=== PATIENT | male | born 1975 ===

== ENCOUNTER 2020-06-14 10:15 | Outpatient (REF) | payer MEDICAID, SELFPAY ==
[2020-06-14 11:14] LABS: MANUAL DIFF FLAG NO
[2020-06-14 11:31] LABS: Basophils Absolute Auto 0.1 X10*3/uL (0.0-0.2); Basophils Percent Auto 1.1 % (0-2); Eosinophils Absolute Auto 0.2 X10*3/uL (0.0-0.4); Eosinophils Percent Auto 3.8 % (0-4); Hematocrit 45.2 % (42-52); Hemoglobin 14.9 g/dl (14.0-18.0); Imm Gran Abs Auto 0.01 X10*3/uL (0.00-0.03); Imm Gran Pct Auto 0.2 % (0.0-0.4); Lymphocytes Absolute Auto 1.8 X10*3/uL (1.2-4.9); Lymphocytes Percent Auto 38.2 % (20-40); Mean Corpuscular Hemoglobin 31.6 pg (27.0-33.0); Mean Platelet Volume 10.5 fL (9.4-12.4); Monocytes Absolute Auto 0.7 X10*3/uL (0.1-1.2); Monocytes Percent Auto 14.1 % (2-11); Neutrophils Percent Auto 42.6 % (45-73); Platelet Count 226 X10*3/uL (160-400); Red Blood Count 4.71 X10*6/uL (4.60-5.80); Red Cell Distribution Width 12.7 % (11.0-16.0); White Blood Count 4.7 X10*3/uL (4.8-10.8)
[2020-06-14 11:41] LABS: Alanine Aminotransferase 64 U/L (0-40); Albumin Level 4.5 g/dL (3.5-5.0); Alkaline Phosphatase 64 U/L (39-117); Anion Gap 13 (12-20); Aspartate Amino Transferase 56 U/L (5-37); Bilirubin Direct 0.5 mg/dL (0.0-0.5); Bilirubin Total 1.4 mg/dL (0.0-1.0); Blood Urea Nitrogen 11 mg/dL (9-16); Calcium 9.1 mg/dL (8.4-10.2); Carbon Dioxide 26 mmol/L (22-29); Chloride 104 mmol/L (96-108); Cholesterol 178 mg/dL; Estimated Glomerular Filt Rate > 60; Glucose Random 101 mg/dL (60-115); HDL Cholesterol 78 mg/dL; LDL Cholesterol Calculated 87 mg/dl; Potassium 4.8 mmol/l (3.3-5.1); Sodium 138 mmol/L (135-145); Triglycerides 67 mg/dL
[2020-06-14 12:08] LABS: Free T4 (Free Thyroxine) 1.19 ng/dL (0.71-1.85); Thyroid Stimulating Hormone 1.85 mIU/mL (0.32-4.0); Vitamin D 25-OH Total 32.2 ng/mL (>30)
== END 2020-06-14 10:16 | disposition home or self-care (01) ==
LOC: HO.LAB 10:15
DX: E78.5 Hyperlipidemia, unspecified (principal); R53.83 Other fatigue
CPT/HCPCS: 36415; 80053; 80061; 80076; 82248; 82306; 84439; 84443; 85025

== ENCOUNTER 2020-07-18 16:30 | Outpatient (REF) | payer MEDICAID, SELFPAY ==
--- NOTE | 2020-07-18 | XR_ITS ---
EXAMINATION: XR HAND, RIGHT CLINICAL INFORMATION: Pain and swelling. COMPARISON: None TECHNIQUE: PA, lateral, and oblique views of the right hand. FINDINGS: The bones and soft tissues are normal. No fracture. Alignment is anatomic. Joint spaces are maintained. No erosions or soft tissue calcifications. XR/XR hand RT min 3V IMPRESSION: Unremarkable right hand exam.
== END 2020-07-18 16:31 | disposition home or self-care (01) ==
LOC: HO.XRAY 16:30
DX: M79.641 Pain in right hand (principal); M79.89 Other specified soft tissue disorders
CPT/HCPCS: 73130

== ENCOUNTER 2021-03-23 09:06 | Outpatient (REF) | payer OTHER, SELFPAY ==
[2021-03-23 11:00] LABS: Alanine Aminotransferase 24 U/L (0-40); Albumin Level 4.3 g/dL (3.5-5.0); Alkaline Phosphatase 56 U/L (39-117); Anion Gap 12 (12-20); Aspartate Amino Transferase 18 U/L (5-37); Bilirubin Total 0.9 mg/dL (0.0-1.0); Blood Urea Nitrogen 12 mg/dL (9-16); Calcium 9.4 mg/dL (8.4-10.2); Carbon Dioxide 27 mmol/L (22-29); Chloride 106 mmol/L (96-108); Cholesterol 179 mg/dL; Estimated Glomerular Filt Rate > 60; Glucose Fasting 96 mg/dL (60-99); HDL Cholesterol 74 mg/dL; LDL Cholesterol Calculated 94 mg/dl; Potassium 4.7 mmol/L (3.3-5.1); Sodium 140 mmol/L (135-145); Total Protein 6.8 g/dL (6.5-8.0); Triglycerides 58 mg/dL
[2021-03-23 11:09] LABS: TSH reflex Free T4 1.73 uIU/mL (0.32-4.0)
[2021-03-23 11:40] LABS: Folate 16.3 ng/mL (> or = 4.0); Vitamin B12 536 pg/mL (200-900)
== END 2021-03-23 09:07 | disposition home or self-care (01) ==
LOC: HO.LAB 09:06
PROVIDERS: PCP Internal Medicine; Visit Provider Internal Medicine
DX: E78.00 Pure hypercholesterolemia, unspecified (principal); R20.2 Paresthesia of skin; E80.6 Other disorders of bilirubin metabolism; R79.89 Other specified abnormal findings of blood chemistry
CPT/HCPCS: 36415; 80053; 80061; 82607; 82746; 84443

== ENCOUNTER 2021-07-24 09:37 | Outpatient (REF) | payer OTHER, SELFPAY ==
[2021-07-24 09:50] LABS: MANUAL DIFF FLAG NO
[2021-07-24 10:32] LABS: Basophils Percent Auto 0.6 % (0-2); Eosinophils Absolute Auto 0.1 X10*3/uL (0.0-0.4); Eosinophils Percent Auto 2.7 % (0-4); Hemoglobin 14.4 g/dl (14.0-18.0); Imm Gran Abs Auto 0.01 X10*3/uL (0.00-0.03); Imm Gran Pct Auto 0.2 % (0.0-0.4); Lymphocytes Percent Auto 38.7 % (20-40); Mean Corpuscular HGB Conc 33.5 g/dl (31.0-36.0); Mean Corpuscular Hemoglobin 31.6 pg (27.0-33.0); Mean Corpuscular Volume 94.5 fL (80.0-98.0); Mean Platelet Volume 10.3 fL (9.4-12.4); Monocytes Absolute Auto 0.5 X10*3/uL (0.1-1.2); Monocytes Percent Auto 10.2 % (2-11); Neutrophils Absolute Auto 2.5 x10*3/uL (2.0-8.3); Neutrophils Percent Auto 47.6 % (45-73); Platelet Count 232 X10*3/uL (160-400); Red Blood Count 4.55 X10*6/uL (4.60-5.80); Red Cell Distribution Width 12.9 % (11.0-16.0); White Blood Count 5.2 X10*3/uL (4.8-10.8)
[2021-07-24 11:07] LABS: Alanine Aminotransferase 29 U/L (0-40); Albumin Level 4.3 g/dL (3.5-5.0); Alkaline Phosphatase 64 U/L (39-117); Anion Gap 14 (12-20); Aspartate Amino Transferase 22 U/L (5-37); Bilirubin Total 1.3 mg/dL (0.0-1.0); Blood Urea Nitrogen 11 mg/dL (9-16); Calcium 9.3 mg/dL (8.4-10.2); Carbon Dioxide 23 mmol/L (22-29); Chloride 107 mmol/L (96-108); Cholesterol 178 mg/dL; Estimated Glomerular Filt Rate > 60; Glucose Fasting 106 mg/dL (60-99); HDL Cholesterol 74 mg/dL; LDL Cholesterol Calculated 87 mg/dl; Potassium 4.4 mmol/L (3.3-5.1); Sodium 140 mmol/L (135-145); Total Protein 6.8 g/dL (6.5-8.0); Triglycerides 89 mg/dL
== END 2021-07-24 09:38 | disposition home or self-care (01) ==
LOC: HO.LAB 09:37
PROVIDERS: PCP Internal Medicine; Visit Provider Internal Medicine
DX: E78.00 Pure hypercholesterolemia, unspecified (principal); L40.9 Psoriasis, unspecified
CPT/HCPCS: 36415; 80053; 80061; 85025

== ENCOUNTER 2022-01-02 09:46 | Outpatient (REF) | payer OTHER, SELFPAY ==
[2022-01-02 09:57] LABS: MANUAL DIFF FLAG NO
[2022-01-02 10:19] LABS: Basophils Percent Auto 0.7 % (0-2); Eosinophils Absolute Auto 0.1 X10*3/uL (0.0-0.4); Eosinophils Percent Auto 2.7 % (0-4); Hematocrit 42.3 % (42.0-52.0); Hemoglobin 14.3 g/dl (14.0-18.0); Imm Gran Abs Auto 0.01 X10*3/uL (0.00-0.03); Imm Gran Pct Auto 0.2 % (0.0-0.4); Lymphocytes Absolute Auto 1.6 X10*3/uL (1.2-4.9); Lymphocytes Percent Auto 38.9 % (20-40); Mean Corpuscular HGB Conc 33.8 g/dl (31.0-36.0); Mean Corpuscular Hemoglobin 31.4 pg (27.0-33.0); Mean Platelet Volume 10.5 fL (9.4-12.4); Monocytes Absolute Auto 0.6 X10*3/uL (0.1-1.2); Neutrophils Absolute Auto 1.7 x10*3/uL (2.0-8.3); Neutrophils Percent Auto 43.5 % (45-73); Platelet Count 204 X10*3/uL (160-400); Red Blood Count 4.55 X10*6/uL (4.60-5.80); Red Cell Distribution Width 13.9 % (11.0-16.0)
[2022-01-02 10:31] LABS: Estimated Average Glucose 103 mg/dL; Hemoglobin A1c % 5.2 %
[2022-01-02 10:57] LABS: Alanine Aminotransferase 26 U/L (0-40); Albumin Level 4.3 g/dL (3.5-5.0); Alkaline Phosphatase 62 U/L (39-117); Anion Gap 10 (12-20); Aspartate Amino Transferase 21 U/L (5-37); Bilirubin Total 1.3 mg/dL (0.0-1.0); Blood Urea Nitrogen 6 mg/dL (9-16); Calcium 9.6 mg/dL (8.4-10.2); Carbon Dioxide 27 mmol/L (22-29); Chloride 108 mmol/L (96-108); Cholesterol 179 mg/dL; Estimated Glomerular Filt Rate > 60; Glucose Fasting 113 mg/dL (60-99); HDL Cholesterol 82 mg/dL; LDL Cholesterol Calculated 86 mg/dl; Potassium 4.6 mmol/L (3.3-5.1); Sodium 140 mmol/L (135-145); Triglycerides 57 mg/dL
[2022-01-02 11:17] LABS: TSH reflex Free T4 1.23 uIU/mL (0.32-4.0); Vitamin D 25-OH Total 27.5 ng/mL (>30)
[2022-01-02 14:46] LABS: Folate 16.5 ng/mL (> or = 4.0); Vitamin B12 423 pg/mL (200-900)
== END 2022-01-02 09:47 | disposition home or self-care (01) ==
LOC: HO.LAB 09:46
PROVIDERS: PCP Internal Medicine; Visit Provider Internal Medicine
DX: E78.00 Pure hypercholesterolemia, unspecified (principal); E55.9 Vitamin D deficiency, unspecified; E53.8 Deficiency of other specified B group vitamins; G57.30 Lesion of lateral popliteal nerve, unspecified lower limb; I10 Essential (primary) hypertension; R73.01 Impaired fasting glucose
CPT/HCPCS: 36415; 80053; 80061; 82306; 82607; 82746; 83036; 84443; 85025

== ENCOUNTER 2022-01-19 07:57 | Outpatient (REF) | payer OTHER, SELFPAY ==
--- NOTE | ~2022-01-19 | XR_ITS ---
EXAMINATION: XR CHEST CLINICAL INFORMATION: Cough. COMPARISON: None TECHNIQUE: 2 views of the chest were obtained. FINDINGS: No significant abnormality is noted involving the heart, lungs, mediastinum, bony thorax or soft tissues. XR/XR chest 2V IMPRESSION: Unremarkable chest examination.
== END 2022-01-19 07:58 | disposition home or self-care (01) ==
LOC: HO.XRAY 07:57
PROVIDERS: Visit Provider Internal Medicine
DX: R05.9 Cough, unspecified (principal)
CPT/HCPCS: 71046

== ENCOUNTER 2022-06-05 09:28 | Outpatient (REF) | payer OTHER, SELFPAY ==
[2022-06-05 09:52] LABS: MANUAL DIFF FLAG NO
[2022-06-05 10:25] LABS: Basophils Absolute Auto 0.1 X10*3/uL (0.0-0.2); Basophils Percent Auto 0.7 % (0-2); Eosinophils Absolute Auto 0.2 X10*3/uL (0.0-0.4); Eosinophils Percent Auto 2.8 % (0-4); Hematocrit 42.3 % (42.0-52.0); Hemoglobin 14.3 g/dl (14.0-18.0); Imm Gran Abs Auto 0.03 X10*3/uL (0.00-0.03); Imm Gran Pct Auto 0.4 % (0.0-0.4); Lymphocytes Absolute Auto 2.6 X10*3/uL (1.2-4.9); Lymphocytes Percent Auto 37.8 % (20-40); Mean Corpuscular HGB Conc 33.8 g/dl (31.0-36.0); Mean Corpuscular Hemoglobin 31.8 pg (27.0-33.0); Mean Corpuscular Volume 94.2 fL (80.0-98.0); Mean Platelet Volume 10.7 fL (9.4-12.4); Monocytes Absolute Auto 0.8 X10*3/uL (0.1-1.2); Monocytes Percent Auto 11.9 % (2-11); Neutrophils Absolute Auto 3.2 x10*3/uL (2.0-8.3); Neutrophils Percent Auto 46.4 % (45-73); Platelet Count 231 X10*3/uL (160-400); Red Blood Count 4.49 X10*6/uL (4.60-5.80); Red Cell Distribution Width 12.7 % (11.0-16.0); White Blood Count 6.8 X10*3/uL (4.8-10.8)
[2022-06-05 10:38] LABS: Appearance Urine Clear; Color Urine Yellow; Glucose Urine UA Negative (Negative); Leukocyte Esterase Urine Small (1+) (Negative); Nitrite Urine Negative (Negative); Specific Gravity - Urine 1.015 (1.005-1.025); UMIC TRIGGER UACC YES; Urine Blood Negative (Negative); Urine Ketones Negative (Negative); Urine Protein Negative (Neg-Trace)
[2022-06-05 10:51] LABS: Bacteria Urine None Seen (None Seen); Hyaline Casts Urine 0-2 /LPF (0-2); RBC Urine 0-2 /HPF (0-2); Squamous Epithelial Cell Urine 0-2 /HPF (0-2); UACC Culture Trigger YES; WBC Urine 0-5 /HPF (0-5)
[2022-06-05 10:52] LABS: Alanine Aminotransferase 30 U/L (0-40); Albumin Level 4.3 g/dL (3.5-5.0); Alkaline Phosphatase 68 U/L (39-117); Anion Gap 14 (12-20); Aspartate Amino Transferase 23 U/L (5-37); Bilirubin Total 1.2 mg/dL (0.0-1.0); Blood Urea Nitrogen 12 mg/dL (9-16); Calcium 9.1 mg/dL (8.4-10.2); Carbon Dioxide 25 mmol/L (22-29); Chloride 105 mmol/L (96-108); Cholesterol 171 mg/dL; Estimated Average Glucose 103 mg/dL; Estimated Glomerular Filt Rate > 60; Glucose Fasting 102 mg/dL (60-99); HDL Cholesterol 63 mg/dL; Hemoglobin A1c % 5.2 %; LDL Cholesterol Calculated 90 mg/dl; Potassium 4.1 mmol/L (3.3-5.1); Sodium 140 mmol/L (135-145); Total Protein 6.8 g/dL (6.5-8.0); Triglycerides 94 mg/dL
[2022-06-05 11:15] LABS: TSH reflex Free T4 3.16 uIU/mL (0.32-4.0); Vitamin D 25-OH Total 32.7 ng/mL (>30)
== END 2022-06-05 09:29 | disposition home or self-care (01) ==
LOC: HO.LAB 09:28
PROVIDERS: PCP Internal Medicine; Visit Provider Internal Medicine
DX: E78.00 Pure hypercholesterolemia, unspecified (principal); E55.9 Vitamin D deficiency, unspecified; R73.01 Impaired fasting glucose; I10 Essential (primary) hypertension
CPT/HCPCS: 36415; 80053; 80061; 81001; 82306; 83036; 84443; 85025; 87086

== ENCOUNTER 2022-10-22 08:00 | Outpatient (REF) | payer OTHER, SELFPAY ==
[2022-10-22 08:16] LABS: MANUAL DIFF FLAG NO
[2022-10-22 08:44] LABS: Basophils Percent Auto 0.7 % (0-2); Eosinophils Absolute Auto 0.1 X10*3/uL (0.0-0.4); Eosinophils Percent Auto 2.1 % (0-4); Hemoglobin 14.9 g/dl (14.0-18.0); Imm Gran Abs Auto 0.02 X10*3/uL (0.00-0.03); Imm Gran Pct Auto 0.3 % (0.0-0.4); Lymphocytes Absolute Auto 2.6 X10*3/uL (1.2-4.9); Lymphocytes Percent Auto 42.3 % (20-40); Mean Corpuscular HGB Conc 33.9 g/dl (31.0-36.0); Mean Corpuscular Volume 94.6 fL (80.0-98.0); Mean Platelet Volume 11.1 fL (9.4-12.4); Monocytes Absolute Auto 0.8 X10*3/uL (0.1-1.2); Monocytes Percent Auto 13.1 % (2-11); Neutrophils Absolute Auto 2.5 x10*3/uL (2.0-8.3); Neutrophils Percent Auto 41.5 % (45-73); Platelet Count 222 X10*3/uL (160-400); Red Blood Count 4.65 X10*6/uL (4.60-5.80); Red Cell Distribution Width 13.5 % (11.0-16.0); White Blood Count 6.1 X10*3/uL (4.8-10.8)
[2022-10-22 09:06] LABS: Appearance Urine Clear; Color Urine Yellow; Glucose Urine UA Negative (Negative); Leukocyte Esterase Urine Negative (Negative); Nitrite Urine Negative (Negative); PH 7.5 (5.0-9.0); Urine Blood Negative (Negative); Urine Ketones Negative (Negative); Urine Protein Negative (Neg-Trace)
[2022-10-22 09:21] LABS: Alanine Aminotransferase 29 U/L (0-40); Albumin Level 4.3 g/dL (3.5-5.0); Alkaline Phosphatase 60 U/L (39-117); Anion Gap 13 (12-20); Aspartate Amino Transferase 24 U/L (5-37); Bilirubin Total 1.3 mg/dL (0.0-1.0); Blood Urea Nitrogen 13 mg/dL (9-16); Calcium 9.3 mg/dL (8.4-10.2); Carbon Dioxide 24 mmol/L (22-29); Chloride 106 mmol/L (96-108); Cholesterol 199 mg/dL; Estimated Glomerular Filt Rate > 60; Glucose Fasting 104 mg/dL (60-99); HDL Cholesterol 72 mg/dL; LDL Cholesterol Calculated 110 mg/dl; Potassium 4.4 mmol/L (3.3-5.1); Sodium 139 mmol/L (135-145); Total Protein 6.8 g/dL (6.5-8.0); Triglycerides 88 mg/dL
[2022-10-22 09:31] LABS: TSH reflex Free T4 2.68 uIU/mL (0.32-4.0)
== END 2022-10-22 08:01 | disposition home or self-care (01) ==
LOC: HO.LAB 08:00
PROVIDERS: PCP Internal Medicine; Visit Provider Internal Medicine
DX: I10 Essential (primary) hypertension (principal); E55.9 Vitamin D deficiency, unspecified; R30.0 Dysuria; E78.00 Pure hypercholesterolemia, unspecified
CPT/HCPCS: 36415; 80053; 80061; 81003; 82306; 84443; 85025

== ENCOUNTER 2022-12-02 13:11 | Emergency (ER) | payer OTHER, SELFPAY ==
--- NOTE | ~2022-12-02 | CT_ITS ---
EXAMINATION: CT ABDOMEN AND PELVIS WITHOUT CONTRAST CLINICAL INFORMATION: Left flank pain. Rule out stone. COMPARISON: None available. TECHNIQUE: Multidetector volumetric imaging was performed from the superior aspect of the liver through the pubic symphysis. Sagittal and coronal reformatted images were obtained on the technologist's workstation. This CT examination was performed using dose optimization techniques as appropriate, variously including the following: *Automated exposure control *Adjustment of mA and/or kV according to patient size (this includes techniques or standardized protocols for targeted exams where dose is matched to indication/reason for exam; i.e. extremities or head) *Use of iterative reconstruction technique DLP: 452 mGy-cm FINDINGS: LUNG BASES: The visualized lung bases are unremarkable. LIVER, GALLBLADDER, AND BILIARY TREE: The liver is normal in size, shape, and attenuation. No focal hepatic lesion or biliary ductal dilatation is present. The gallbladder is unremarkable with no evidence of radiopaque gallstones, gallbladder wall thickening, or obvious pericholecystic inflammatory changes. PANCREAS: Unremarkable. SPLEEN: Unremarkable. ADRENAL GLANDS: Unremarkable. KIDNEYS AND URETERS: The kidneys are normal in size, shape, and attenuation. No hydronephrosis, hydroureter, or calculi seen. No perinephric stranding. BLADDER: Unremarkable. GASTROINTESTINAL TRACT: The small and large bowel are unremarkable. The appendix is unremarkable. ABDOMINAL WALL: Small umbilical hernia containing fat.. LYMPH NODES: Normal. VASCULAR: Unremarkable. PELVIC VISCERA: Unremarkable. OSSEOUS STRUCTURES: Degenerative changes of the lower lumbar spine. CT/CT abdomen pelvis wo IV con IMPRESSION: No stone or hydronephrosis seen. Fleischner guidelines were followed.
--- NOTE | ~2022-12-02 | XR_ITS ---
EXAMINATION: XR CHEST CLINICAL INFORMATION: Left-sided chest pain COMPARISON: Previous chest x-ray January 2022 TECHNIQUE: 2 views of the chest were obtained. FINDINGS: No significant abnormality is noted involving the heart, lungs, mediastinum, bony thorax or soft tissues. XR/XR chest 2V IMPRESSION: Unremarkable examination.
--- NOTE | 2022-12-02 13:15 | ECG_ITS ---
Test Reason : L FLANK PAIN Blood Pressure : / mmHG Vent. Rate : 093 BPM Atrial Rate : 093 BPM P-R Int : 114 ms QRS Dur : 072 ms QT Int : 342 ms P-R-T Axes : 030 058 003 degrees QTc Int : 425 ms Normal sinus rhythm with sinus arrhythmia Normal ECG When compared with ECG of 14-DEC-2014 16:05, No significant change was found Referred By: Petra Zhao Electronically Signed By:DEMI BARILLAS
[2022-12-02 13:46] VITALS: BP 160/97; PULSE 90; RESP 18; TEMP 37.1; O2SAT 99; BMI 26.6
--- NOTE | 2022-12-02 13:46 | ED.GENADULT ---
HPI - General Adult General Chief complaint: Abdominal Pain Stated complaint: L side pain rad to back Time Seen by Provider: 12/02/22 19:36 Source: patient Mode of arrival: ambulatory Limitations: no limitations History of Present Illness HPI narrative: 47 yo male presents to the ER for evaluation of left middle back pain that started about a week ago but has been getting worse. He states he works in [employer] and is often crawling into small spaces. He reports the pain started mild in his middle left back. It got worse this week and acutely worse today. It is worse with movement and deep breaths. No urinary symptoms. No chest pain. MD complaint: left flank pain Onset (ago): week(s) (1) Location: back and left Radiation: non-radiation Severity: moderate Quality: stabbing and aching Pain Consistency: constant Relieving factors: rest Exacerbating factors: movement Associated symptoms: denies other symptoms Treatments prior to arrival: none Related Data Home Medications Medication Instructions Recorded Confirmed apremilast 30 mg tablet 30 mg PO BID 12/01/20 11/13/22 Previous Rx's Medication Instructions Recorded clobetasol 0.05 % scalp solution 1 appl topical DAILY PRN scalp 01/18/22 psoriasis #50 mL atorvastatin 20 mg tablet 20 mg PO DAILY #90 tabs 09/24/22 cholecalciferol (vitamin D3) 50 50 mcg PO DAILY 90 days #90 caps 11/13/22 mcg (2,000 unit) capsule cyclobenzaprine 10 mg tablet 10 mg PO Q8H PRN muscle spasm #14 12/02/22 tabs ibuprofen 800 mg tablet 800 mg PO Q8H PRN fever or pain 12/02/22 #10 tabs lidocaine 5 % topical patch 1 patch topical DAILY #15 ea 12/02/22 Allergies Allergy/AdvReac Type Severity Reaction Status Date / Time trazodone AdvReac Intermediate racing Uncoded 11/13/22 09:35 thoughts ; made insomnia worse Review of Systems Review of Systems: Yes all other systems are reviewed and are negative [facility] Past Medical History Medical History (Updated 12/02/22 @ 19:59 by VIJAY Juares) Elevated LFTs Hyperbilirubinemia Insomnia Overweight (BMI 25.0-29.9) Paresthesia of both feet Peroneal neuropathy Peyronie's disease Psoriasis Pure hypercholesterolemia Vitamin D deficiency Surgical History History of hand surgery Family History Family History Mother Hypertension Father Heart disease Hyperlipidemia Social History Social History Housing: House Alcohol intake: current Alcohol intake frequency: a few times a week Patient Tobacco Use Status: Former Tobacco user e-Cigarette/Vaping Use: Never Used Second Hand Smoke Exposure: Yes Advance Directives: No Advance Directives Information Provided: Yes service: No Current occupational status: employed 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 Oriented X3. No acute distress. Head: normocephalic, atraumatic. Eyes: Pupils equal, round and reactive to light. ENT: Pharynx normal. No tonsillar swelling or exudate. Neck: Normal inspection. Neck supple. CVS: Normal heart rate and rhythm. Pulses normal. Respiratory: No respiratory distress. Breath sounds normal. Abdomen: Soft and nontender. +BS x4 Back: normal inspection. +CVA tenderness on the left. no lumbar tenderness. no midline tenderness Skin: Skin warm and dry. Normal skin color. Normal skin turgor. No rashes. Extremities: No lower extremity edema. No joint swelling. Neuro/psych: Oriented X 3. No motor deficit. No sensory deficit. CN II-XII intact. Normal speech and cognition. Medical Decision Making Medical Decision Making [facility] Narrative: 47 yo male presents to the ER for evaluation of left flank pain that started 1 week ago and has been getting worse. No associated N/V/D or urinary symptoms. +CVA tenderness on the left. CT scan was done that is negative for stone. UA clear and labs are normal. Most likely muscular back pain, will treat accordingly. Stable for d/c home. Differential Diagnosis Differential Diagnoses: The differential diagnosis associated with the presentation includes kidney stone, pyelonephritis, muscle strain/spasm, broken rib, pneumonia Lab Data [facility] Lab Attestation statement: I reviewed the patient's lab results. unremarkable lab workup, normal kindey function and UA 12/02/22 13:56 12/02/22 13:56 Labs: Lab Results 12/02/22 12/02/22 12/02/22 Range/Units 13:56 13:56 15:41 WBC 5.8 (4.8-10.8) X10*3/uL RBC 4.57 L (4.60-5.80) X10*6/uL Hgb 14.6 (14.0-18.0) g/dl Hct 43.3 (42.0-52.0) % MCV 94.7 (80.0-98.0) fL MCH 31.9 (27.0-33.0) pg MCHC 33.7 (31.0-36.0) g/dl RDW 13.9 (11.0-16.0) % Plt Count 207 (160-400) X10*3/uL MPV 9.9 (9.4-12.4) fL Immature Gran % (Auto) 0.2 (0.0-0.4) % Neut % (Auto) 62.1 (45-73) % Lymph % (Auto) 25.3 (20-40) % Fannin % (Auto) 10.9 (2-11) % Eos % (Auto) 1.0 (0-4) % Baso % (Auto) 0.5 (0-2) % Lymph # (Auto) 1.5 (1.2-4.9) X10*3/uL Fannin # (Auto) 0.6 (0.1-1.2) X10*3/uL Eos # (Auto) 0.1 (0.0-0.4) X10*3/uL Baso # (Auto) 0.0 (0.0-0.2) X10*3/uL Abs Immat Gran (auto) 0.01 (0.00-0.03) X10*3/uL Absolute Neuts (auto) 3.6 (2.0-8.3) x10*3/uL Absolute Nucleated RBC 0.000 (0.0-0.012) X10*3/uL Nucleated RBC % (auto) 0.0 (0.0-0.2) /100WBC Sodium 142 (135-145) mmol/L Potassium 4.3 (3.3-5.1) mmol/L Chloride 106 (96-108) mmol/L Carbon Dioxide 28 (22-29) mmol/L Anion Gap 12 (12-20) BUN 11 (9-16) mg/dL Creatinine 1.06 (0.5-1.4) mg/dL Estim Creat Clear Calc 80.5 Estimated GFR > 60 Random Glucose 107 (60-115) mg/dL Calcium 9.4 (8.4-10.2) mg/dL Magnesium 1.7 (1.6-2.6) mg/dL Total Bilirubin 0.8 (0.0-1.0) mg/dL Direct Bilirubin 0.3 (0.0-0.5) mg/dL AST 28 (5-37) U/L ALT 35 (0-40) U/L Alkaline Phosphatase 84 (39-117) U/L Total Protein 7.1 (6.5-8.0) g/dL Albumin 4.6 (3.5-5.0) g/dL Urine Color Yellow Urine Appearance Clear Urine pH 7.5 (5.0-9.0) Ur Specific [place] 1.010 (1.005-1.025) Urine Protein Negative (Neg-Trace) mg/dL Urine Glucose (UA) Negative (Negative) mg/dL Urine Ketones 15 (Negative) mg/dL Urine Blood Negative (Negative) Urine Nitrite Negative (Negative) Ur Leukocyte Esterase Negative (Negative) Independent Interpretation I performed an independent interpretation of an: EKG and CT Scan Interpretation: EKG - normal sinus rhythm with sinus arrythmia, HR 93 bpm, normal FL interval, normal QTc, no change from prior EXAMINATION: CT ABDOMEN AND PELVIS WITHOUT CONTRAST? CLINICAL INFORMATION: Left flank pain. Rule out stone.? COMPARISON: None available.? TECHNIQUE: Multidetector volumetric imaging was performed from the superior aspect of the liver through the pubic symphysis. Sagittal and coronal reformatted images were obtained on the technologist's workstation.? This CT examination was performed using dose optimization techniques as appropriate, variously including the following: *Automated exposure control *Adjustment of mA and/or kV according to patient size (this includes techniques or standardized protocols for targeted exams where dose is matched to indication/reason for exam; i.e. extremities or head) *Use of iterative reconstruction technique DLP: 452 mGy-cm FINDINGS: LUNG BASES: The visualized lung bases are unremarkable.? LIVER, GALLBLADDER, AND BILIARY TREE: The liver is normal in size, shape, and attenuation. No focal hepatic lesion or biliary ductal dilatation is present. The gallbladder is unremarkable with no evidence of radiopaque gallstones, gallbladder wall thickening, or obvious pericholecystic inflammatory changes.? PANCREAS: Unremarkable.? SPLEEN: Unremarkable.? ADRENAL GLANDS: Unremarkable.? KIDNEYS AND URETERS: The kidneys are normal in size, shape, and attenuation. No hydronephrosis, hydroureter, or calculi seen. No perinephric stranding. ? BLADDER: Unremarkable.? GASTROINTESTINAL TRACT: The small and large bowel are unremarkable. The appendix is unremarkable.? ABDOMINAL WALL: Small umbilical hernia containing fat..? LYMPH NODES: Normal. VASCULAR: Unremarkable. PELVIC VISCERA: Unremarkable.? OSSEOUS STRUCTURES: Degenerative changes of the lower lumbar spine.? CT/CT abdomen pelvis wo IV con IMPRESSION: No stone or hydronephrosis seen Radiology Impression Discussion of test interpretation with radiology: I have reviewed the radiologist's reading. Radiologist Impression: normal CT, agree w/ radiologist External Record Review External record reviewed: Prior outpatient labs Prescription Management I considered prescription management with: Pain Medication Critical Care Time Critical Care Time Critical Care Time: No Discharge Plan Discharge Clinical Impression: Back pain Patient Disposition: Home, Self-Care Instructions: Back Pain (ED), Lower Back Exercises (ED) Additional Instructions: Your lab workup, urine test and CT scans were unremarkable. Your pain is most likely due to muscle strain and spasm. No bending, lifting or twisting. Use ice several times per day for 20 minutes at a time for the next 48 hours and then change to heat. Take medications as prescribed to help with pain and discomfort. Follow up with your Primary Care Doctor this week. If your pain worsens, if you develop new numbness, tingling, weakness, loss of function or incontinence call 911 or come back to the ER right away for evaluation. Prescriptions: New cyclobenzaprine 10 mg tablet 10 mg PO Q8H PRN (Reason: muscle spasm) Qty: 14 0RF ibuprofen 800 mg tablet 800 mg PO Q8H PRN (Reason: fever or pain) Qty: 10 0RF lidocaine 5 % adhesive patch,medicated 1 patch topical DAILY Qty: 15 0RF Rx Instructions: leave on most painful area for up to 12 hrs No Action atorvastatin 20 mg tablet 20 mg PO DAILY Qty: 90 1RF apremilast 30 mg tablet 30 mg PO BID Rx Instructions: Otezla clobetasol 0.05 % solution 1 appl topical DAILY PRN (Reason: scalp psoriasis) Qty: 50 2RF cholecalciferol (vitamin D3) 50 mcg (2,000 unit) capsule 50 mcg PO DAILY 90 Days Qty: 90 3RF
[2022-12-02 14:00] LABS: MANUAL DIFF FLAG NO
[2022-12-02 14:01] LABS: Basophils Percent Auto 0.5 % (0-2); Eosinophils Absolute Auto 0.1 X10*3/uL (0.0-0.4); Hematocrit 43.3 % (42.0-52.0); Hemoglobin 14.6 g/dl (14.0-18.0); Imm Gran Abs Auto 0.01 X10*3/uL (0.00-0.03); Imm Gran Pct Auto 0.2 % (0.0-0.4); Lymphocytes Absolute Auto 1.5 X10*3/uL (1.2-4.9); Lymphocytes Percent Auto 25.3 % (20-40); Mean Corpuscular HGB Conc 33.7 g/dl (31.0-36.0); Mean Corpuscular Hemoglobin 31.9 pg (27.0-33.0); Mean Corpuscular Volume 94.7 fL (80.0-98.0); Mean Platelet Volume 9.9 fL (9.4-12.4); Monocytes Absolute Auto 0.6 X10*3/uL (0.1-1.2); Monocytes Percent Auto 10.9 % (2-11); Neutrophils Absolute Auto 3.6 x10*3/uL (2.0-8.3); Neutrophils Percent Auto 62.1 % (45-73); Platelet Count 207 X10*3/uL (160-400); Red Blood Count 4.57 X10*6/uL (4.60-5.80); Red Cell Distribution Width 13.9 % (11.0-16.0); White Blood Count 5.8 X10*3/uL (4.8-10.8)
[2022-12-02 14:17] LABS: Alanine Aminotransferase 35 U/L (0-40); Albumin Level 4.6 g/dL (3.5-5.0); Alkaline Phosphatase 84 U/L (39-117); Anion Gap 12 (12-20); Aspartate Amino Transferase 28 U/L (5-37); Bilirubin Direct 0.3 mg/dL (0.0-0.5); Bilirubin Total 0.8 mg/dL (0.0-1.0); Blood Urea Nitrogen 11 mg/dL (9-16); Calcium 9.4 mg/dL (8.4-10.2); Carbon Dioxide 28 mmol/L (22-29); Chloride 106 mmol/L (96-108); Creatinine Clr Calc Pharmacy 80.5; Estimated Glomerular Filt Rate > 60; Glucose Random 107 mg/dL (60-115); Magnesium 1.7 mg/dL (1.6-2.6); Potassium 4.3 mmol/L (3.3-5.1); Sodium 142 mmol/L (135-145); Total Protein 7.1 g/dL (6.5-8.0)
[2022-12-02 15:54] LABS: Appearance Urine Clear; Color Urine Yellow; Glucose Urine UA Negative (Negative); Leukocyte Esterase Urine Negative (Negative); Nitrite Urine Negative (Negative); PH 7.5 (5.0-9.0); Urine Blood Negative (Negative); Urine Ketones 15 mg/dL (Negative); Urine Protein Negative (Neg-Trace)
== END 2022-12-02 20:07 | disposition home or self-care (01) ==
PROVIDERS: Physician Assistant; Emergency Provider Emergency Medicine; PCP Internal Medicine
DX: R10.9 Unspecified abdominal pain (principal); E78.00 Pure hypercholesterolemia, unspecified; Z79.02 Long term (current) use of antithrombotics/antiplatelets; Z79.899 Other long term (current) drug therapy
CPT/HCPCS: 36415; 71046; 74176; 80048; 80076; 81003; 83735; 85025; 93005; 99283; 99284

== ENCOUNTER 2023-04-09 09:06 | Outpatient (REF) | payer OTHER, SELFPAY ==
[2023-04-09 09:22] LABS: MANUAL DIFF FLAG NO
[2023-04-09 10:01] LABS: Basophils Percent Auto 0.7 % (0-2); Eosinophils Absolute Auto 0.1 X10*3/uL (0.0-0.4); Eosinophils Percent Auto 2.6 % (0-4); Hematocrit 44.6 % (42.0-52.0); Imm Gran Abs Auto 0.01 X10*3/uL (0.00-0.03); Imm Gran Pct Auto 0.2 % (0.0-0.4); Lymphocytes Absolute Auto 2.1 X10*3/uL (1.2-4.9); Lymphocytes Percent Auto 38.9 % (20-40); Mean Corpuscular HGB Conc 33.6 g/dl (31.0-36.0); Mean Corpuscular Hemoglobin 32.3 pg (27.0-33.0); Mean Corpuscular Volume 95.9 fL (80.0-98.0); Mean Platelet Volume 10.9 fL (9.4-12.4); Monocytes Absolute Auto 0.7 X10*3/uL (0.1-1.2); Monocytes Percent Auto 12.7 % (2-11); Neutrophils Absolute Auto 2.5 x10*3/uL (2.0-8.3); Neutrophils Percent Auto 44.9 % (45-73); Platelet Count 208 X10*3/uL (160-400); Red Blood Count 4.65 X10*6/uL (4.60-5.80); Red Cell Distribution Width 13.2 % (11.0-16.0); White Blood Count 5.5 X10*3/uL (4.8-10.8)
[2023-04-09 10:33] LABS: Alanine Aminotransferase 34 U/L (0-40); Albumin Level 4.3 g/dL (3.5-5.0); Alkaline Phosphatase 64 U/L (39-117); Anion Gap 12 (12-20); Aspartate Amino Transferase 20 U/L (5-37); Bilirubin Total 1.4 mg/dL (0.0-1.0); Blood Urea Nitrogen 12 mg/dL (9-16); Calcium 9.5 mg/dL (8.4-10.2); Carbon Dioxide 24 mmol/L (22-29); Chloride 107 mmol/L (96-108); Cholesterol 189 mg/dL (<200); Estimated Glomerular Filt Rate > 60; Glucose Fasting 98 mg/dL (60-99); HDL Cholesterol 81 mg/dL (>40); LDL Cholesterol Calculated 94 mg/dL (<100); Sodium 139 mmol/L (135-145); Total Protein 7.1 g/dL (6.5-8.0); Triglycerides 74 mg/dL (<150)
[2023-04-09 10:51] LABS: Vitamin D 25-OH Total 39.4 ng/mL (>30)
== END 2023-04-09 09:07 | disposition home or self-care (01) ==
LOC: HO.LAB 09:06
PROVIDERS: PCP Internal Medicine; Visit Provider Internal Medicine
DX: E78.00 Pure hypercholesterolemia, unspecified (principal); I10 Essential (primary) hypertension; E55.9 Vitamin D deficiency, unspecified
CPT/HCPCS: 36415; 80053; 80061; 82306; 85025

== ENCOUNTER 2023-04-22 09:42 | Outpatient (AMB) | payer OTHER, SELFPAY ==
[2023-04-22 09:53] VITALS: BP 128/78; PULSE 78; O2SAT 99; BMI 26.6
--- NOTE | 2023-04-22 09:53 | A.OFFPC_ITS ---
Vital Signs 04/22/23 09:53 Height 5 ft 7 in Weight 170 lb 2 oz BMI 26.6 BP 128/78 Blood Pressure Location Lt brachial Position Sitting Pulse 78 Pulse Source Pulse Oximeter Pulse Oximetry (%) 99 Oxygen Delivery Method Room Air Intake Visit Reasons: hyperlipidemia, insomnia Hotel Service Supervisor Required: No Accompanied by: Self / Same As Patient Allergies trazodone Adverse Reaction (Intermediate, Uncoded 04/22/23 10:16) racing thoughts ; made insomnia worse Medication List - Last Reconciled 04/22/23 by Preston Wells MD apremilast 30 mg PO BID atorvastatin 20 mg PO DAILY cholecalciferol (vitamin D3) 50 mcg PO DAILY 90 days clobetasol 0.05% 1 appl topical DAILY PRN cyclobenzaprine 10 mg PO Q8H PRN ibuprofen 800 mg PO Q8H PRN lidocaine 5% 1 patch topical DAILY Tobacco use date assessed: 04/22/23 Dental Screening Dental Screen Date: 04/22/23 Did you have a dental visit in the last 12 months?: Yes Did you have a dental problem in the last 6 months where you did not have access to dental care?: No Was dental information given to patient?: Patient has dentist HPI hyperlipidemia, insomnia HPI Details Patient comes in today for his follow up visit States that he is still experiencing recurrent pain over his left flank area Went to the ER back in November 2022 for increasing left flank and left lower back pain Had an abdominal and pelvic CT done for further evaluation - CT came back negative (for renal pathology) but did mention (+) degenerative changes in the lumbar spine States that he was prescribed some Cyclobenzaprine 10 mg, which helps temporarily, but he mostly just takes it at night as it does make him feel tired and somewhat sleepy - would like to get a refill of this Rx States that he feels okay otherwise He denies any headaches or dizziness Denies any chest pains, no SOB No nausea/vomiting, no abdominal pain No change in bowel habits noted Had his follow up labs done last week - to discuss his results [facility] Medical History Elevated LFTs Hyperbilirubinemia Insomnia Overweight (BMI 25.0-29.9) Paresthesia of both feet Peroneal neuropathy Peyronie's disease Psoriasis Pure hypercholesterolemia Vitamin D deficiency Surgical History History of hand surgery Family History Mother Hypertension Father Heart disease Hyperlipidemia Social History Housing: House Alcohol intake: current Alcohol intake frequency: a few times a week Patient Tobacco Use Status: Former Tobacco user e-Cigarette/Vaping Use: Never Used Second Hand Smoke Exposure: Yes service: No Current occupational status: employed 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 1. Little interest or pleasure in doing things: not at all 2. Feeling down, depressed, or hopeless: not at all 3. Trouble falling or staying asleep, or sleeping too much: not at all 4. Feeling tired or having little energy: not at all 5. Poor appetite or overeating: not at all 6. Feeling bad about yourself - or that you are a failure or have let yourself or your family down: not at all 7. Trouble concentrating on things, such as reading the newspaper or watching television: not at all 8. Moving or speaking so slowly that other people could have noticed. Or the opposite - being so fidgety or restless that you have been moving around a lot more than usual: not at all 9. Thoughts that you would be better off or of hurting yourself in some way: not at all Total score: 0 Depression Screening Interpretation: Negative [id number] - PHQ-9 Billing: Yes Source: Developed by Drs. Jose Johnston, Mini Pierce, Immanuel Ponce and colleagues, with an educational radha from [employer]. Thrive Questionnaire Date Thrive assessed: 04/22/23 I am a: Patient What is your living situation today?: I have a steady place to live Within the past 12 months, did the food you bought not last and you didn't have the money to get more?: Never true Within the past 12 months, did you worry whether your food would run out before you got money to buy more?: Never true Do you have trouble paying for medicines?: No Do you have trouble getting transportation to medical appointments?: No Do you have trouble paying your heating and electricity bill?: No Do you have trouble taking care of your child, family member or friend?: No Do you have trouble with day-to-day activities such as bathing, preparing meals, shopping, managing finances, etc.?: No Are you currently unemployed and looking for a job?: No Are you interested in more education?: No Please select the resources that you would like help with: None Currently or been in a relationship where the following occur: no concerns reported AUDIT C Alcohol Use Questionnaire (AUDIT-C) 1. How often do you have a drink containing alcohol?: Monthly or less 2. How many drinks containing alcohol do you have on a typical day when you are drinking?: 1 or 2 3. How often do you have six or more drinks on one occasion?: Never Total Score: 1 Score Reviewed/Action Taken: Yes CLAIRE-7 AMB Questionnaire CLAIRE-7 Date CLAIRE - 7 assessed: 04/22/23 Feeling nervous, anxious, or on edge: 0 = Not at all Not being able to stop or control worryin = Not at all Worrying too much about different things: 0 = Not at all Trouble relaxin = Not at all Being so restless that it is hard to sit still: 0 = Not at all Becoming easily annoyed or irritable: 0 = Not at all Feeling afraid as if something awful might happen: 0 = Not at all Total CLAIRE-7 score (0-4 normal; 5-9 mild; 10-14 moderate; 15-21 severe): 0 Source: Developed by Drs. Jose Johnston, Mini Pierce, Immanuel Ponce and colleagues, with an educational radha from [employer]. Review of Systems Const Reports difficulty sleeping, Denies fatigue, Denies fever(s) and Denies headache(s) ENT Denies dysphagia, Denies dizziness, Denies otalgia, Denies headache(s), Denies neck pain, Denies odynophagia and Denies sore throat Card Denies chest pain, Denies rapid heart rate, Denies irregular heart rhythm, Leif es palpitations and Denies dyspnea Resp Denies chest congestion, Denies cough, Denies dyspnea and Denies wheezing GI Denies abdominal pain, Denies bloating, Denies constipation, Denies dysphagia, Denies heartburn, Denies diarrhea, Denies nausea, Denies odynophagia and Denies vomiting Denies dysuria, Denies nocturia and Denies urinary frequency Musc Details: (+) recurrent pain over the left flank and over the left lower back Reports back pain (on and off), Denies arthralgias and Denies neck pain Skin/Breast Denies rash Neuro Denies dizziness, Denies headache(s) and Denies paresthesias Endo Denies fatigue and Denies palpitations Aller/Immun Denies wheezing Physical exam (Primary Care) Vital Signs: Last Vital Signs Pulse 78 04/22/23 09:53 BP 128/78 04/22/23 09:53 Pulse Ox 99 04/22/23 09:53 Oxygen Delivery Method Room Air 04/22/23 09:53 BMI result Body Mass Index 26.6 Tobacco/Smoking Status: Tobacco use Status Tobacco use date assessed 04/22/23 04/22/23 09:57 Patient Tobacco Use Status Former Tobacco user 04/22/23 09:57 e-Cigarette/Vaping Use Never Used 04/22/23 09:57 PHQ-9: PHQ-9 Score PHQ-9: Total score 0 04/22/23 09:57 Depression Screening Interpretation: Negative Thrive Assessment: Date of Thrive Assessment Date Thrive assessed 04/22/23 04/22/23 09:57 Currently or been in a relationship where the following occur: no concerns reported Const General: no acute distress and alert HENMT Ears: TM's normal bilaterally and EAC's normal Throat: Yes posterior oropharynx normal and Yes tonsils normal (no TP congestion) Neck Neck: Yes no lymphadenopathy and Yes supple Resp Auscultation: clear to auscultation bilaterally, no rales and no wheezes Cardio Rate: regular rate Rhythm: regular rhythm Heart sounds: no murmurs GI Palpation (GI): Soft to palpation, nontender and No hepatosplenomegaly present General: Yes CVA tenderness (mild, on the left side) Back/Spine/Pelvis Back: CVA tenderness (mild, on the left side) Thoracic/Lumbar Spine: lumbar spinal tenderness (mild) Skin Rashes: no rashes Extrem General: Yes no clubbing, cyanosis or edema Results Reviewed Results Reviewed: Laboratory Tests 04/09/23 04/09/23 09:21 09:21 WBC 5.5 Hgb 15.0 Hct 44.6 Plt Count 208 Sodium 139 Potassium 4.0 Creatinine 0.81 Estimated GFR > 60 Fasting Glucose 98 Calcium 9.5 Total Bilirubin 1.4 H AST 20 ALT 34 Triglycerides 74 Cholesterol 189 LDL Cholesterol, Calc 94 HDL Cholesterol 81 25-OH Vitamin D Total 39.4 Assessment and Plan Assessment & Plan (1) Pure hypercholesterolemia: Code(s): E78.00 - Pure hypercholesterolemia, unspecified Plan: Results of his labs done last week reviewed and discussed with patient - advised that his cholesterol numbers have improved slightly from previous now that he has been taking his Rx regularly Reinforced low cholesterol diet Continue Atorvastatin 20 mg QD Will recheck his labs and fasting lipids in 4 months for follow up (2) Elevated LFTs: Code(s): R79.89 - Other specified abnormal findings of blood chemistry Plan: LFTs were elevated on his labs in May 2020 but are back to normal and have remained normal since; are again normal on his labs done last week Advised that his elevated LFTs were most likely due to the effects of alcohol, as patient admitted that he was drinking alcohol frequently before but has since cut back a lot on his drinking Will continue to monitor his LFTs regularly (3) Hyperbilirubinemia: Code(s): E80.6 - Other disorders of bilirubin metabolism Plan: Bilirubin level is again elevated on his recent labs - total bilirubin is elevated but direct bilirubin is normal LFTs are otherwise normal and patient is asymptomatic Will continue to monitor thhis regularly; may still need to get an abdominal US done if his numbers continue to go up (4) Left flank pain: Code(s): R10.9 - Unspecified abdominal pain Plan: Is most likely due to musculoskeletal strain, as his abdominal and pelvic CT done at the ER a few months ago came out negative Patient crawls into small spaces often and regularly due to his job and advised that this is likely aggravating his left lower back Cautioned that he also has some findings of lumbar spine DDD on his CT - reinforced activity and weight lifting restrictions as much as he can to avoid aggravating his lower back Continue Cyclobenzaprine 10 mg TID PRN - Rx refilled Advised that he can also apply some OTC muscle pain patch over his left flank and left lower back or warm compress PRN for symptomatic relief (5) Impaired fasting glucose: Code(s): R73.01 - Impaired fasting glucose Plan: HgbA1c was normal at 5.2% when checked previously Reinforced low calorie diet/exercise as tolerated Patient reports (+) family Hx of diabetes - reassured again that he does NOT have diabetes presently but needs to be vigilant with his diet and consistent with regular exercise (6) Psoriasis: Code(s): L40.9 - Psoriasis, unspecified Plan: Continue Clobetasol 0.05% scalp solution QD PRN as instructed and Otezla 30 mg BID Follow up with dermatology as scheduled (7) Peroneal neuropathy: Comment: NCV done on 02/04/2017 at [facility] showed (+) severe bilateral peroneal neuropathy affecting the motor component Code(s): G57.30 - Lesion of lateral popliteal nerve, unspecified lower limb Qualifiers: Laterality: unspecified laterality Qualified Code(s): G57.30 - Lesion of lateral popliteal nerve, unspecified lower limb Plan: Symptoms are manageable / stable currently B12 level was normal when checked last year Has been seen by neurology (Dr. Robertson) in the past and can refer him back for follow up if needed - patient states that he will call for referral if necessary (8) Peyronie's disease: Comment: sees Dr. Roa (urology) Code(s): N48.6 - Induration penis plastica Plan: Follow up with urology as scheduled (9) Vitamin D deficiency: Code(s): E55.9 - Vitamin D deficiency, unspecified Plan: Continue Vitamin D3 2000 units QD (10) Insomnia: Code(s): G47.00 - Insomnia, unspecified Qualifiers: Insomnia type: unspecified Qualified Code(s): G47.00 - Insomnia, unspecified Plan: Sleep hygiene reinforced States that he has tried taking some OTC sleep aids, including Tylenol PM and Melatonin, which help somewhat Was tried on Trazodone 50 mg Q HS PRN but he could not tolerate Rx - feels that the Rx made his insomnia worse Advised to call if he feels he is ready to try a different Rx to help him with his sleep (11) Overweight (BMI 25.0-29.9): Code(s): E66.3 - Overweight Plan: Reinforced diet/exercise as tolerated/lose weight Plan Follow up in 4 months Orders: Orders Comprehensive [place]. Panel Fast 4 Months E78.00 - Pure hypercholesterolemia, unspecified Lipid Panel 4 Months E78.00 - Pure hypercholesterolemia, unspecified Hemoglobin A1c 4 Months R73.01 - Impaired fasting glucose TSH reflex Free T4 4 Months E78.00 - Pure hypercholesterolemia, unspecified Vitamin D 25-OH Total 4 Months E55.9 - Vitamin D deficiency, unspecified Complete Blood Count Auto Diff 4 Months I10 - Essential (primary) hypertension UA CC w/rflx Micro + Cult 4 Months R30.0 - Dysuria Vitamin B12 and Folate 4 Months E53.8 - Deficiency of other specified B group vitamins Medications: Refilled cyclobenzaprine 10 mg PO Q8H PRN 60 tabs 2RF muscle spasms Coding Level of Care Code Est Pt Level 4 (44448) Diagnoses Pure hypercholesterolemia E78.00 Elevated LFTs R79.89 Hyperbilirubinemia E80.6 Left flank pain R10.9 Impaired fasting glucose R73.01 Psoriasis L40.9 Peroneal neuropathy G57.30 Laterality: unspecified laterality Peyronie's disease N48.6 Vitamin D deficiency E55.9 Insomnia G47.00 Insomnia type: unspecified Overweight (BMI 25.0-29.9) E66.3
== END 2023-04-22 10:46 | disposition home or self-care (01) ==
PROVIDERS: PCP Internal Medicine; Visit Provider Internal Medicine
DX: E78.00 Pure hypercholesterolemia, unspecified (principal); E80.6 Other disorders of bilirubin metabolism; E55.9 Vitamin D deficiency, unspecified; R10.9 Unspecified abdominal pain; R73.01 Impaired fasting glucose; L40.9 Psoriasis, unspecified; G57.30 Lesion of lateral popliteal nerve, unspecified lower limb; N48.6 Induration penis plastica; G47.00 Insomnia, unspecified; E66.3 Overweight
CPT/HCPCS: 99214

== ENCOUNTER 2023-06-20 13:06 | Emergency (ER) | payer OTHER, SELFPAY ==
--- NOTE | ~2023-06-20 | XR_ITS ---
EXAMINATION: XR HAND, RIGHT CLINICAL INFORMATION: Laceration over fifth metacarpal. COMPARISON: 06/20/2006 TECHNIQUE: PA, lateral, and oblique views of the right hand. FINDINGS: Alignment is anatomic. Joint spaces are maintained. No acute displaced fracture or dislocation. No erosions or soft tissue calcifications. XR/XR hand RT 2V IMPRESSION: No acute bony abnormality.
[2023-06-20 14:04] VITALS: BP 171/75; PULSE 105; RESP 18; TEMP 36.8; O2SAT 99; BMI 26.6
--- NOTE | 2023-06-20 14:06 | ED_ITS ---
HPI - General Adult General Chief complaint: Wound/Laceration Stated complaint: R Hand Lac 06/20/23 Time Seen by Provider: 06/20/23 15:55 Source: patient Mode of arrival: ambulatory Limitations: no limitations History of Present Illness HPI narrative: Patient is a 48-year-old male presents emergency department for evaluation of the laceration to the right lateral aspect of his hand. He is right-hand dominant. Sustained this laceration from working with a piece of sheet metal. Unaware of the date of last tetanus vaccination. He reports localized numbness to the laceration, able to move all digits appropriately, full AROM to the wrist. Related Data Home Medications Medication Instructions Recorded Confirmed apremilast 30 mg tablet 30 mg PO BID 12/01/20 04/22/23 Previous Rx's Medication Instructions Recorded cholecalciferol (vitamin D3) 50 50 mcg PO DAILY 90 days #90 caps 11/13/22 mcg (2,000 unit) capsule ibuprofen 800 mg tablet 800 mg PO Q8H PRN fever or pain 12/02/22 #10 tabs lidocaine 5 % topical patch 1 patch topical DAILY #15 ea 12/02/22 atorvastatin 20 mg tablet 20 mg PO DAILY #90 tabs 01/18/23 clobetasol 0.05 % scalp solution 1 appl topical DAILY PRN scalp 01/18/23 psoriasis #50 mL cyclobenzaprine 10 mg tablet 10 mg PO Q8H PRN muscle spasms #60 04/22/23 tabs cephalexin 500 mg capsule 500 mg PO QID #28 caps 06/20/23 Allergies Allergy/AdvReac Type Severity Reaction Status Date / Time trazodone AdvReac Intermediate racing Uncoded 06/20/23 14:08 thoughts ; made insomnia worse Review of Systems Review of Systems: Yes all other systems are reviewed and are negative [facility] Past Medical History Attestation statement: The following information was validated with the patient. Source: old records reviewed Medical History Vitamin D deficiency Insomnia Peroneal neuropathy Peyronie's disease Psoriasis Overweight (BMI 25.0-29.9) Hyperbilirubinemia Paresthesia of both feet Elevated LFTs Pure hypercholesterolemia Surgical History History of hand surgery Family History Family History Mother Hypertension Father Heart disease Hyperlipidemia Social History Social History Housing: House Alcohol intake: current Alcohol intake frequency: a few times a week Patient Tobacco Use Status: Former Tobacco user e-Cigarette/Vaping Use: Never Used Second Hand Smoke Exposure: Yes Advance Directives: No service: No Current occupational status: employed 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 No acute distress.?Normal affect. Neck: Normal inspection.? Neck supple.?? CVS: Heart sounds normal. Normal heart rate and rhythm.? Pulses normal.?? Respiratory: No respiratory distress.? Lung sounds clear to auscultation bilaterally?? Skin: Skin warm and dry.? Normal skin color.? 5 cm flap-like laceration to the lateral aspect of the right hand, bleeding controlled Extremities: No lower extremity edema.? Neuro: Moves all extremities spontaneously. Sensation intact bilaterally. Ambulates with normal steady gait. Course Course Course Narrative: This is a rapid medical exam: Additional HPI, ROS, PE not included below will be deferred to primary provider. Patient is 40-year-old [id number] male presenting emergency department with complaint of laceration right hand. States he cut his hand on sheet metal approximately 1 hour prior to arrival. Unsure last tetanus. Full range of motion all fingers of right hand. Reports prior history of surgical removal of tendon in right hand. Will need repair. Plan: x-ray, Tdap Medications Administered Discontinued Medications Generic Name Dose Route Start Last Admin Trade Name Freq PRN Reason Stop Dose Admin Diphtheria/Tetanus/Acell Pertussis 0.5 ml 06/20/23 14:07 06/20/23 16:27 Diphth,Pertus(Acell),Tet Adult 0.5 Ml Syringe IM 06/20/23 14:08 0.5 ml .ONCE ONE Administration Lidocaine HCl 5 ml 06/20/23 16:58 06/20/23 17:21 Lidocaine Hcl 1 % Mpf 5 Ml Vial SUBCUT 06/20/23 16:59 5 ml ONCE ONE Administration Procedures Laceration Laceration 1: Site: hand Side (If applicable): right Size (cm): 5 Description: flap Depth: simple, single layer Local Anesthetic: lidocaine 1% Amount of anesthesia used (mL): 3 Pre-repair: wound explored, irrigated extensively and deep structures intact Skin layer closed with: nylon Size (cm): 4-0 Number of sutures: 11 Technique: simple, interrupted Medical Decision Making Medical Decision Making MDM Narrative: Patient is a 48-year-old male who presents emergency department for evaluation of flap-like laceration to the right lateral hand, extremities neurovascularly intact distally, XR imaging without evidence of osseous abnormality or retained foreign body. Cleansed with saline and Betadine, repaired as per procedural note with sutures. Advised worrisome signs and symptoms that would warrant re- evaluation including signs of infection. Tdap was updated today. All questions were answered. Stable for discharge. Differential Diagnosis Differential Diagnoses: The differential diagnosis associated with the presentation includes (Fracture, dislocation, retained foreign body, laceration, neurovascular compromise) Independent Interpretation I performed an independent interpretation of an: Plain X-Ray (I personally interpreted x-ray imaging and agree with radiologist impression, no acute abnormality) Radiology Impression Discussion of test interpretation with radiology: I have reviewed the radiologist's reading. Radiologist Impression: XR/XR hand RT 2V IMPRESSION: No acute bony abnormality. External Record Review External record reviewed: Outpatient record Prescription Management I considered prescription management with: Pain Medication (Acetaminophen/ibuprofen) and Antibiotic (Prophylaxis) Discharge Plan Discharge Clinical Impression: Laceration of hand Patient Disposition: Home, Self-Care Instructions: Laceration (ED) Additional Instructions: sutures will need to be removed in 10 days, you may follow-up with her primary care provider and/or return back to the emergency department for removal. Prescription for antibiotic to prevent infection was sent to your pharmacy, please complete this entire course. Tetanus vaccine was updated today. Prescriptions: New cephalexin 500 mg capsule 500 mg PO QID Qty: 28 0RF No Action atorvastatin 20 mg tablet 20 mg PO DAILY Qty: 90 1RF clobetasol 0.05 % solution 1 appl topical DAILY PRN (Reason: scalp psoriasis) Qty: 50 2RF ibuprofen 800 mg tablet 800 mg PO Q8H PRN (Reason: fever or pain) Qty: 10 0RF lidocaine 5 % adhesive patch,medicated 1 patch topical DAILY Qty: 15 0RF Rx Instructions: leave on most painful area for up to 12 hrs apremilast 30 mg tablet 30 mg PO BID Rx Instructions: Otezla cyclobenzaprine 10 mg tablet 10 mg PO Q8H PRN (Reason: muscle spasms) Qty: 60 2RF cholecalciferol (vitamin D3) 50 mcg (2,000 unit) capsule 50 mcg PO DAILY 90 Days Qty: 90 3RF Referrals: Preston Wells MD [Primary Care Provider] -
[2023-06-20 16:08] VITALS: BP 199/106; PULSE 111; RESP 18; O2SAT 99
--- NOTE | 2023-06-20 16:18 | PC.NURSE ---
bp elevated Luis PA aware.
[2023-06-20] MEDS: Diphth,Pertus(ACell),Tet Adult 0.5 ML SYRINGE IM (16:27)
[2023-06-20 16:33] VITALS: BP 161/110
--- NOTE | 2023-06-20 16:33 | PC.NURSE ---
tetanus shot administered per order; paperwork given to pt/educated. R. hand soaking in saline/betadine solution per jayla clark request.
[2023-06-20] MEDS: Lidocaine HCl 1 % MPF 5 ML VIAL SUBCUT (17:21)
--- NOTE | 2023-06-20 17:21 | PC.NURSE ---
lidocaine used my provider prior to stitching R. hand.
[2023-06-20 17:26] VITALS: BP 118/118; PULSE 111; RESP 18; O2SAT 97
--- NOTE | 2023-06-20 17:31 | PC.NURSE ---
provider at bedside to suture wound.
[2023-06-20 18:25] VITALS: BP 159/105
== END 2023-06-20 18:26 | disposition home or self-care (01) ==
PROVIDERS: Emergency Provider Emergency Medicine; PCP Internal Medicine
DX: S61.411A Laceration without foreign body of right hand, initial encounter (principal); S60.511A Abrasion of right hand, initial encounter; W26.9XXA Contact with unspecified sharp object(s), initial encounter; Y93.9 Activity, unspecified; Y92.9 Unspecified place or not applicable; Y99.0 Civilian activity done for income or pay; Z79.899 Other long term (current) drug therapy
CPT/HCPCS: 12042; 73120; 90471; 90715; 99284

== ENCOUNTER 2023-08-26 10:07 | Outpatient (REF) | payer OTHER, SELFPAY ==
[2023-08-26 10:29] LABS: MANUAL DIFF FLAG NO
[2023-08-26 10:53] LABS: Basophils Percent Auto 0.7 % (0-2); Eosinophils Absolute Auto 0.2 X10*3/uL (0.0-0.4); Eosinophils Percent Auto 3.2 % (0-4); Hemoglobin 15.1 g/dl (14.0-18.0); Imm Gran Abs Auto 0.02 X10*3/uL (0.00-0.03); Imm Gran Pct Auto 0.4 % (0.0-0.4); Lymphocytes Absolute Auto 2.5 X10*3/uL (1.2-4.9); Lymphocytes Percent Auto 43.5 % (20-40); Mean Corpuscular HGB Conc 34.3 g/dl (31.0-36.0); Mean Corpuscular Hemoglobin 31.7 pg (27.0-33.0); Mean Corpuscular Volume 92.4 fL (80.0-98.0); Mean Platelet Volume 10.5 fL (9.4-12.4); Monocytes Absolute Auto 0.9 X10*3/uL (0.1-1.2); Neutrophils Absolute Auto 2.1 x10*3/uL (2.0-8.3); Neutrophils Percent Auto 37.2 % (45-73); Platelet Count 248 X10*3/uL (160-400); Red Blood Count 4.76 X10*6/uL (4.60-5.80); Red Cell Distribution Width 12.9 % (11.0-16.0); White Blood Count 5.7 X10*3/uL (4.8-10.8)
[2023-08-26 11:29] LABS: Estimated Average Glucose 103 mg/dL; Hemoglobin A1c % 5.2 % (<6.0)
[2023-08-26 12:09] LABS: Folate 12.2 ng/mL (> or = 4.0); Vitamin B12 599 pg/mL (200-900)
[2023-08-26 12:33] LABS: Alanine Aminotransferase 28 U/L (0-40); Albumin Level 4.4 g/dL (3.5-5.0); Alkaline Phosphatase 58 U/L (39-117); Anion Gap 11 (12-20); Aspartate Amino Transferase 20 U/L (5-37); Bilirubin Total 1.1 mg/dL (0.0-1.0); Blood Urea Nitrogen 10 mg/dL (9-16); Calcium 9.5 mg/dL (8.4-10.2); Carbon Dioxide 25 mmol/L (22-29); Chloride 108 mmol/L (96-108); Cholesterol 174 mg/dL (<200); Estimated Glomerular Filt Rate > 60; Glucose Fasting 109 mg/dL (60-99); HDL Cholesterol 55 mg/dL (>40); LDL Cholesterol Calculated 101 mg/dL (<100); Potassium 3.9 mmol/L (3.3-5.1); Sodium 140 mmol/L (135-145); Total Protein 7.3 g/dL (6.5-8.0); Triglycerides 90 mg/dL (<150)
[2023-08-26 12:42] LABS: TSH reflex Free T4 1.97 uIU/mL (0.32-4.0); Vitamin D 25-OH Total 30.6 ng/mL (>30)
[2023-08-26 12:55] LABS: Appearance Urine Clear; Color Urine Yellow; Glucose Urine UA Negative (Negative); Leukocyte Esterase Urine Negative (Negative); Nitrite Urine Negative (Negative); Specific Gravity - Urine 1.015 (1.005-1.025); Urine Blood Negative (Negative); Urine Ketones Negative (Negative); Urine Protein Negative (Neg-Trace)
== END 2023-08-26 10:08 | disposition home or self-care (01) ==
LOC: HO.LAB 10:07
PROVIDERS: PCP Internal Medicine; Visit Provider Internal Medicine
DX: E53.8 Deficiency of other specified B group vitamins (principal); E78.00 Pure hypercholesterolemia, unspecified; I10 Essential (primary) hypertension; R73.01 Impaired fasting glucose; E55.9 Vitamin D deficiency, unspecified; R30.0 Dysuria
CPT/HCPCS: 36415; 80053; 80061; 81003; 82306; 82607; 82746; 83036; 84443; 85025

== ENCOUNTER 2023-10-31 14:27 | Outpatient (AMB) | payer OTHER, SELFPAY ==
--- NOTE | 2023-10-31 14:40 | A.OFFPC_ITS ---
Vital Signs 10/31/23 14:42 10/31/23 14:48 Height 5 ft 7 in Weight 178 lb 6 oz BMI 27.9 BP 132/90 H 120/80 Blood Pressure Location Lt brachial Lt brachial Position Sitting Sitting Pulse 83 Pulse Source Pulse Oximeter Pulse Oximetry (%) 96 Oxygen Delivery Method Room Air Intake Visit Reasons: hyperlipidemia, neuropathy Intake Note: Patient is here to follow up on Hyperlipidemia, Neuropathy. 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 Marketing & Development: Not Required per policy Accompanied by: Self / Same As Patient Allergies trazodone Adverse Reaction (Intermediate, Uncoded 10/31/23 15:31) racing thoughts ; made insomnia worse Medication List - Last Reconciled 10/31/23 by Preston Wells MD apremilast 30 mg PO BID atorvastatin 20 mg PO DAILY clobetasol 0.05% 1 appl topical DAILY PRN cyclobenzaprine 10 mg PO Q8H PRN ibuprofen 800 mg PO Q8H PRN lidocaine 5% 1 patch topical DAILY Tobacco use date assessed: 10/31/23 Dental Screening Dental Screen Date: 10/31/23 Did you have a dental visit in the last 12 months?: Yes Did you have a dental problem in the last 6 months where you did not have access to dental care?: No Was dental information given to patient?: Patient has dentist HPI hyperlipidemia, neuropathy HPI Details Patient comes in today for his follow up visit States that he feels okay He denies any headaches or dizziness Denies any chest pains, no SOB No nausea/vomiting, no abdominal pain No change in bowel habits noted Had his follow up labs done a couple of months ago - to discuss his results [facility] Medical History Vitamin D deficiency Insomnia Peroneal neuropathy Peyronie's disease Psoriasis Overweight (BMI 25.0-29.9) Hyperbilirubinemia Paresthesia of both feet Elevated LFTs Pure hypercholesterolemia Surgical History History of hand surgery Family History Mother Hypertension Father Heart disease Hyperlipidemia Social History Housing: House Alcohol intake: current Alcohol intake frequency: a few times a week Patient Tobacco Use Status: Former Tobacco user e-Cigarette/Vaping Use: Never Used Second Hand Smoke Exposure: Yes service: No Current occupational status: employed 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 1. Little interest or pleasure in doing things: not at all 2. Feeling down, depressed, or hopeless: not at all 3. Trouble falling or staying asleep, or sleeping too much: not at all 4. Feeling tired or having little energy: not at all 5. Poor appetite or overeating: not at all 6. Feeling bad about yourself - or that you are a failure or have let yourself or your family down: not at all 7. Trouble concentrating on things, such as reading the newspaper or watching television: not at all 8. Moving or speaking so slowly that other people could have noticed. Or the opposite - being so fidgety or restless that you have been moving around a lot more than usual: not at all 9. Thoughts that you would be better off or of hurting yourself in some way: not at all Total score: 0 Depression Screening Interpretation: Negative Depression Screening Done: Yes 70236 - PHQ-9 Billing: Yes Source: Developed by Drs. Jose Johnston, Mini Pierce, Immanuel Ponce and colleagues, with an educational radha from [employer]. Thrive Questionnaire Date Thrive assessed: 10/31/23 I am a: Patient What is your living situation today?: I have a steady place to live Within the past 12 months, did the food you bought not last and you didn't have the money to get more?: Never true Within the past 12 months, did you worry whether your food would run out before you got money to buy more?: Never true Do you have trouble paying for medicines?: No Do you have trouble getting transportation to medical appointments?: No Do you have trouble paying your heating and electricity bill?: No Do you have trouble taking care of your child, family member or friend?: No Do you have trouble with day-to-day activities such as bathing, preparing meals, shopping, managing finances, etc.?: No Are you currently unemployed and looking for a job?: No Are you interested in more education?: No Currently or been in a relationship where the following occur: no concerns reported THRIVE Score: 0 AUDIT C Alcohol Use Questionnaire (AUDIT-C) 1. How often do you have a drink containing alcohol?: 2-3 times a week 2. How many drinks containing alcohol do you have on a typical day when you are drinking?: 1 or 2 Total Score: 3 Score Reviewed/Action Taken: Yes CLAIRE-7 AMB Questionnaire CLAIRE-7 Date CLAIRE - 7 assessed: 10/31/23 Feeling nervous, anxious, or on edge: 0 = Not at all Not being able to stop or control worryin = Not at all Worrying too much about different things: 0 = Not at all Trouble relaxin = Not at all Being so restless that it is hard to sit still: 0 = Not at all Becoming easily annoyed or irritable: 0 = Not at all Feeling afraid as if something awful might happen: 0 = Not at all Total CLAIRE-7 score (0-4 normal; 5-9 mild; 10-14 moderate; 15-21 severe): 0 Source: Developed by Drs. Jose Johnston, Mini Pierce, Immanuel Ponce and colleagues, with an educational radha from [employer]. Review of Systems Const Denies chills, Denies fatigue, Denies fever(s) and Denies headache(s) ENT Denies dysphagia, Denies dizziness, Denies otalgia, Denies headache(s), Denies neck pain, Denies odynophagia and Denies sore throat Card Denies chest pain, Denies palpitations and Denies dyspnea Resp Denies cough and Denies dyspnea GI Denies abdominal pain, Denies constipation, Denies dysphagia, Denies heartburn, Denies diarrhea, Denies nausea, Denies odynophagia and Denies vomiting Denies dysuria, Denies nocturia and Denies urinary frequency Musc Denies back pain and Denies neck pain Skin/Breast Denies rash Neuro Denies dizziness and Denies headache(s) Endo Denies fatigue and Denies palpitations Physical exam (Primary Care) Vital Signs: Last Vital Signs Pulse 83 10/31/23 14:42 BP 120/80 10/31/23 14:48 Pulse Ox 96 10/31/23 14:42 Oxygen Delivery Method Room Air 10/31/23 14:42 BMI result Body Mass Index 27.9 Tobacco/Smoking Status: Tobacco use Status Tobacco use date assessed 10/31/23 10/31/23 14:49 Patient Tobacco Use Status Former Tobacco user 10/31/23 14:41 e-Cigarette/Vaping Use Never Used 10/31/23 14:41 PHQ-9: PHQ-9 Score PHQ-9: Total score 0 10/31/23 15:33 Depression Screening Interpretation: Negative Thrive Assessment: Date of Thrive Assessment Date Thrive assessed 10/31/23 10/31/23 14:41 Currently or been in a relationship where the following occur: no concerns reported Const General: no acute distress and alert HENMT Ears: TM's normal bilaterally and EAC's normal Throat: Yes posterior oropharynx normal and Yes tonsils normal (no TP congestion) Neck Neck: Yes no lymphadenopathy and Yes supple Thyroid: Thyroid normal Resp Auscultation: clear to auscultation bilaterally, no rales and no wheezes Cardio Rate: regular rate Rhythm: regular rhythm Heart sounds: no murmurs GI Palpation (GI): Soft to palpation and nontender Auscultation: normal bowel sounds General: Yes no CVA tenderness Back/Spine/Pelvis Back: no CVA tenderness Thoracic/Lumbar Spine: thoracic and lumbar spine normal to inspection Skin Rashes: no rashes Extrem General: Yes no clubbing, cyanosis or edema Results Reviewed Results Reviewed: Laboratory Tests 08/26/23 10:16 WBC 5.7 Hgb 15.1 Hct 44.0 Plt Count 248 Sodium 140 Potassium 3.9 Creatinine 0.96 Estimated GFR > 60 Fasting Glucose 109 H Hemoglobin A1c % 5.2 Calcium 9.5 Total Bilirubin 1.1 H AST 20 ALT 28 Triglycerides 90 Cholesterol 174 LDL Cholesterol, Calc 101 H HDL Cholesterol 55 Vitamin B12 599 25-OH Vitamin D Total 30.6 L Folate 12.2 TSH 1.97 Ur Specific Willet 1.015 Urine Protein Negative Urine Glucose (UA) Negative Urine Blood Negative Urine Nitrite Negative Ur Leukocyte Esterase Negative Assessment and Plan Assessment & Plan (1) Pure hypercholesterolemia: Code(s): E78.00 - Pure hypercholesterolemia, unspecified Plan: Results of his labs done a couple of months ago reviewed and discussed with patient Reinforced low cholesterol diet Continue Atorvastatin 20 mg QD Will recheck his labs and fasting lipids in 4 months for follow up (2) Elevated LFTs: Code(s): R79.89 - Other specified abnormal findings of blood chemistry Plan: LFTs were elevated on his labs in May 2020 but are back to normal and have remained normal since; are again normal on his most recent labs Advised that his elevated LFTs were most likely due to the effects of alcohol, as patient admitted that he was drinking alcohol frequently before but states that he has since cut back a lot on his drinking Will continue to monitor his LFTs regularly (3) Hyperbilirubinemia: Code(s): E80.6 - Other disorders of bilirubin metabolism Plan: Bilirubin level is again elevated on his recent labs - total bilirubin is elevated but direct bilirubin is normal LFTs are otherwise normal and patient is asymptomatic Will continue to monitor thhis regularly; may still need to get an abdominal US done if his numbers continue to go up (4) Impaired fasting glucose: Code(s): R73.01 - Impaired fasting glucose Plan: HgbA1c was normal at 5.2% when checked previously and again a couple of months ago Reinforced low calorie diet/exercise as tolerated Patient reports (+) family Hx of diabetes - reassured again that he does NOT have diabetes but needs to be vigilant with his diet and be consistent with regular exercise (5) Psoriasis: Code(s): L40.9 - Psoriasis, unspecified Plan: Continue Clobetasol 0.05% scalp solution QD PRN as instructed and Otezla 30 mg BID Follow up with dermatology as scheduled (6) Left flank pain: Code(s): R10.9 - Unspecified abdominal pain Plan: Appears resolved - was most likely due to musculoskeletal strain, as his abdominal and pelvic CT done at the ER last year (November 2022) came out negative Patient crawls into small spaces often and regularly due to his job and advised that this is likely aggravating his left lower back Cautioned again that he also has some findings of lumbar spine DDD on his CT - reinforced activity and weight lifting restrictions as much as he can to avoid aggravating his lower back Continue Cyclobenzaprine 10 mg TID PRN Advised that he can also apply some OTC muscle pain patch over his left flank and left lower back or warm compress PRN for symptomatic relief (7) Peroneal neuropathy: Comment: NCV done on 02/04/2017 at [facility] showed (+) 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 Robertson) in the past and can refer him back for follow up if needed - patient states that he will call for referral if necessary (8) Peyronie's disease: Comment: sees Dr. Roa (urology) Code(s): N48.6 - Induration penis plastica Plan: Follow up with urology as scheduled (9) Vitamin D deficiency: Code(s): E55.9 - Vitamin D deficiency, unspecified Plan: Continue Vitamin D3 2000 units QD (10) Insomnia: Code(s): G47.00 - Insomnia, unspecified Qualifiers: Insomnia type: unspecified Qualified Code(s): G47.00 - Insomnia, unspecified Plan: Sleep hygiene reinforced States that he has tried taking some OTC sleep aids, including Tylenol PM and Melatonin, which help somewhat Was tried on Trazodone 50 mg Q HS PRN but he could not tolerate Rx - feels that the Rx made his insomnia worse Advised to call if he feels he is ready to try a different Rx to help him with his sleep (11) Overweight (BMI 25.0-29.9): Code(s): E66.3 - Overweight Plan: Reinforced diet/exercise as tolerated/lose weight Plan Follow up in 4 months Orders: Orders Comprehensive [place]. Panel Fast 4 Months E78.00 - Pure hypercholesterolemia, unspecified Vitamin D 25-OH Total 4 Months E55.9 - Vitamin D deficiency, unspecified Lipid Panel 4 Months E78.00 - Pure hypercholesterolemia, unspecified Complete Blood Count Auto Diff 4 Months D64.9 - Anemia, unspecified Coding Level of Care Code Est Pt Level 4 (19101) Diagnoses Pure hypercholesterolemia E78.00 Elevated LFTs R79.89 Hyperbilirubinemia E80.6 Impaired fasting glucose R73.01 Psoriasis L40.9 Left flank pain R10.9 Peroneal neuropathy, unspecified laterality G57.30 Laterality: unspecified laterality Peyronie's disease N48.6 Vitamin D deficiency E55.9 Insomnia, unspecified type G47.00 Insomnia type: unspecified Overweight (BMI 25.0-29.9) E66.3
[2023-10-31 14:42] VITALS: BP 132/90; PULSE 83; O2SAT 96; BMI 27.9
[2023-10-31 14:48] VITALS: BP 120/80
== END 2023-10-31 15:35 | disposition home or self-care (01) ==
PROVIDERS: PCP Internal Medicine; Visit Provider Internal Medicine
DX: E78.00 Pure hypercholesterolemia, unspecified (principal); R79.89 Other specified abnormal findings of blood chemistry; E80.6 Other disorders of bilirubin metabolism; R73.01 Impaired fasting glucose; L40.9 Psoriasis, unspecified; R10.9 Unspecified abdominal pain; G57.30 Lesion of lateral popliteal nerve, unspecified lower limb; N48.6 Induration penis plastica; E55.9 Vitamin D deficiency, unspecified; G47.00 Insomnia, unspecified; E66.3 Overweight
CPT/HCPCS: 99214

== ENCOUNTER 2024-02-24 08:14 | Outpatient (REF) | payer OTHER, SELFPAY ==
[2024-02-24 08:29] LABS: MANUAL DIFF FLAG NO
[2024-02-24 08:52] LABS: Basophils Absolute Auto 0.1 X10*3/uL (0.0-0.2); Basophils Percent Auto 1.1 % (0-2); Eosinophils Absolute Auto 0.1 X10*3/uL (0.0-0.4); Eosinophils Percent Auto 2.1 % (0-4); Hematocrit 44.6 % (42.0-52.0); Hemoglobin 14.9 g/dl (14.0-18.0); Imm Gran Abs Auto 0.01 X10*3/uL (0.00-0.03); Imm Gran Pct Auto 0.2 % (0.0-0.4); Lymphocytes Absolute Auto 2.1 X10*3/uL (1.2-4.9); Mean Corpuscular HGB Conc 33.4 g/dl (31.0-36.0); Mean Corpuscular Hemoglobin 31.9 pg (27.0-33.0); Mean Corpuscular Volume 95.5 fL (80.0-98.0); Mean Platelet Volume 10.2 fL (9.4-12.4); Monocytes Absolute Auto 0.8 X10*3/uL (0.1-1.2); Monocytes Percent Auto 15.8 % (2-11); Neutrophils Absolute Auto 1.8 x10*3/uL (2.0-8.3); Neutrophils Percent Auto 36.8 % (45-73); Platelet Count 213 X10*3/uL (160-400); Red Blood Count 4.67 X10*6/uL (4.60-5.80); Red Cell Distribution Width 13.6 % (11.0-16.0); White Blood Count 4.8 X10*3/uL (4.8-10.8)
[2024-02-24 09:49] LABS: Alanine Aminotransferase 36 U/L (0-40); Albumin Level 4.4 g/dL (3.5-5.0); Alkaline Phosphatase 54 U/L (39-117); Anion Gap 15 (12-20); Aspartate Amino Transferase 28 U/L (5-37); Bilirubin Total 1.5 mg/dL (0.0-1.0); Blood Urea Nitrogen 12 mg/dL (9-16); Calcium 9.6 mg/dL (8.4-10.2); Carbon Dioxide 23 mmol/L (22-29); Chloride 105 mmol/L (96-108); Cholesterol 212 mg/dL (<200); Estimated Glomerular Filt Rate > 60; Glucose Fasting 104 mg/dL (60-99); HDL Cholesterol 91 mg/dL (>40); LDL Cholesterol Calculated 112 mg/dL (<100); Sodium 139 mmol/L (135-145); Total Protein 7.2 g/dL (6.5-8.0); Triglycerides 48 mg/dL (<150)
[2024-02-24 10:06] LABS: Vitamin D 25-OH Total 51.5 ng/mL (>30)
== END 2024-02-24 08:15 | disposition home or self-care (01) ==
LOC: HO.LAB 08:14
PROVIDERS: PCP Internal Medicine; Visit Provider Internal Medicine
DX: D64.9 Anemia, unspecified (principal); E78.00 Pure hypercholesterolemia, unspecified; E55.9 Vitamin D deficiency, unspecified
CPT/HCPCS: 36415; 80053; 80061; 82306; 85025

== ENCOUNTER 2024-07-21 14:52 | Outpatient (REF) | payer OTHER, SELFPAY ==
[2024-07-21 15:13] LABS: MANUAL DIFF FLAG NO
[2024-07-21 15:29] LABS: Basophils Percent Auto 0.8 % (0-2); Eosinophils Absolute Auto 0.3 X10*3/uL (0.0-0.4); Eosinophils Percent Auto 5.2 % (0-4); Hematocrit 42.2 % (42.0-52.0); Hemoglobin 14.8 g/dl (14.0-18.0); Imm Gran Abs Auto 0.02 X10*3/uL (0.00-0.03); Imm Gran Pct Auto 0.4 % (0.0-0.4); Lymphocytes Percent Auto 39.3 % (20-40); Mean Corpuscular HGB Conc 35.1 g/dl (31.0-36.0); Mean Corpuscular Hemoglobin 33.3 pg (27.0-33.0); Mean Platelet Volume 10.3 fL (9.4-12.4); Monocytes Absolute Auto 0.7 X10*3/uL (0.1-1.2); Monocytes Percent Auto 12.9 % (2-11); Neutrophils Absolute Auto 2.1 x10*3/uL (2.0-8.3); Neutrophils Percent Auto 41.4 % (45-73); Platelet Count 201 X10*3/uL (160-400); Red Blood Count 4.44 X10*6/uL (4.60-5.80)
[2024-07-21 15:30] LABS: Appearance Urine Clear; Color Urine Yellow; Glucose Urine UA Negative (Negative); Leukocyte Esterase Urine Negative (Negative); Nitrite Urine Negative (Negative); Specific Gravity - Urine <= 1.005 (1.005-1.025); Urine Blood Negative (Negative); Urine Ketones Negative (Negative); Urine Protein Negative (Neg-Trace)
[2024-07-21 16:01] LABS: Alanine Aminotransferase 21 U/L (0-40); Albumin Level 4.3 g/dL (3.5-5.0); Alkaline Phosphatase 49 U/L (39-117); Anion Gap 12 (12-20); Aspartate Amino Transferase 27 U/L (5-37); Blood Urea Nitrogen 12 mg/dL (9-16); Calcium 9.5 mg/dL (8.4-10.2); Carbon Dioxide 26 mmol/L (22-29); Chloride 106 mmol/L (96-108); Cholesterol 212 mg/dL (<200); Estimated Glomerular Filt Rate > 60; Glucose Fasting 82 mg/dL (60-99); HDL Cholesterol 87 mg/dL (>40); LDL Cholesterol Calculated 116 mg/dL (<100); Potassium 4.1 mmol/L (3.3-5.1); Sodium 140 mmol/L (135-145); Total Protein 6.9 g/dL (6.5-8.0); Triglycerides 49 mg/dL (<150)
[2024-07-21 16:16] LABS: TSH reflex Free T4 1.71 uIU/mL (0.32-4.0); Vitamin D 25-OH Total 33.9 ng/mL (>30)
[2024-07-21 16:17] LABS: Prostate Specific Antigen Scr 0.86 ng/mL (<0.05-4.0)
== END 2024-07-21 14:53 | disposition home or self-care (01) ==
LOC: HO.LAB 14:52
PROVIDERS: PCP Internal Medicine; Visit Provider Internal Medicine
DX: Z00.00 Encounter for general adult medical examination without abnormal findings (principal); D64.9 Anemia, unspecified; E78.00 Pure hypercholesterolemia, unspecified; R30.0 Dysuria; E55.9 Vitamin D deficiency, unspecified
CPT/HCPCS: 36415; 80053; 80061; 81003; 82306; 84153; 84443; 85025

== ENCOUNTER 2024-07-26 13:48 | Outpatient (REF) | payer OTHER, SELFPAY ==
--- NOTE | ~2024-07-26 | XR_ITS ---
EXAMINATION: XR CHEST CLINICAL INFORMATION: R05.8 - Other specified cough COMPARISON: Chest x-ray on 12/02/2022 TECHNIQUE: 2 views of the chest were obtained. FINDINGS: The cardiac silhouette is normal. There is mild diffuse bronchial wall thickening. There are no areas of consolidation. There are no pleural effusions or pneumothoraces. The bones and soft tissues are unremarkable for the patient's age. XR/XR chest 2V IMPRESSION: Bronchial wall thickening may be infectious and/or inflammatory in etiology. Electronically signed by: June Ayala MD 07/26/2024 04:59 PM FITO
== END 2024-07-26 13:49 | disposition home or self-care (01) ==
LOC: HO.LAB 13:48
PROVIDERS: PCP Internal Medicine; Visit Provider Internal Medicine
DX: Z00.00 Encounter for general adult medical examination without abnormal findings (principal); R05.8 Other specified cough; E78.00 Pure hypercholesterolemia, unspecified; R79.89 Other specified abnormal findings of blood chemistry; E80.6 Other disorders of bilirubin metabolism; R73.01 Impaired fasting glucose; G47.33 Obstructive sleep apnea (adult) (pediatric); M51.369 Other intervertebral disc degeneration, lumbar region without mention of lumbar back pain or lower extremity pain; G57.30 Lesion of lateral popliteal nerve, unspecified lower limb; E55.9 Vitamin D deficiency, unspecified; N48.6 Induration penis plastica; L40.9 Psoriasis, unspecified; G47.00 Insomnia, unspecified; E66.3 Overweight; Z79.899 Other long term (current) drug therapy
CPT/HCPCS: 71046; 96127; 99396

== ENCOUNTER 2024-07-26 13:48 | Outpatient (AMB) | payer OTHER, SELFPAY ==
[2024-07-26 13:52] VITALS: BP 136/90; PULSE 99; O2SAT 99; BMI 27.9
--- NOTE | 2024-07-26 13:52 | MHC.PC.OV ---
Vital Signs 07/26/24 13:52 07/26/24 14:20 Height 5 ft 7 in Weight 178 lb BMI 27.9 BP 136/90 H 140/88 H Blood Pressure Location Lt brachial Lt brachial Position Sitting Sitting Pulse 99 Pulse Source Pulse Oximeter Pulse Oximetry (%) 99 Oxygen Delivery Method Room Air Intake Visit Reasons: ANNUAL Jig Bore Operator Required: No Accompanied by: Self / Same As Patient Allergies trazodone Adverse Reaction (Intermediate, Uncoded 07/26/24 14:08) racing thoughts ; made insomnia worse Medication List - Last Reconciled 07/26/24 by Preston Wells MD apremilast 30 mg PO BID atorvastatin 20 mg PO DAILY clobetasol 0.05% 1 appl topical DAILY PRN cyclobenzaprine 10 mg PO Q8H PRN ibuprofen 800 mg PO Q8H PRN lidocaine 5% 1 patch topical DAILY Tobacco use date assessed: 07/26/24 Dental Screening Dental Screen Date: 07/26/24 Did you have a dental visit in the last 12 months?: Yes Did you have a dental problem in the last 6 months where you did not have access to dental care?: No Was dental information given to patient?: Patient has dentist HPI ANNUAL HPI Details Patient comes in today for his annual physical examination States that he feels okay He denies any headaches or dizziness Denies any chest pains, no SOB although he's had a recurrent non-productive cough for about 2 to 3 months now States that the cough can come on randomly and does not appear to be related to activity or exertion and does not wake him up at night He's had no recent cold symptoms and states that he does not feel that the cough is affecting his breathing or limiting his activity No nausea/vomiting, no abdominal pain No change in bowel habits noted He denies any acute urinary symptoms Relates that he has (+) Hx of sleep apnea - was diagnosed at [facility] back in 2014, but he could never tolerate wearing a CPAP device when he sleeps at night Needs his Clobetasol cream Rx refilled He had his follow up labs done last week - to discuss his results He had a negative Cologuard done back in June 2022 - will be due for either Cologuard or a regular screening colonoscopy by late next year [facility] Medical History (Updated 08/02/24 @ 03:52 by Preston Wells MD) Obstructive sleep apnea Lumbar degenerative disc disease Vitamin D deficiency Insomnia Peroneal neuropathy Peyronie's disease Psoriasis Overweight (BMI 25.0-29.9) Hyperbilirubinemia Paresthesia of both feet Elevated LFTs Pure hypercholesterolemia Surgical History History of hand surgery Family History Mother Hypertension Father Heart disease Hyperlipidemia Social History Housing: House Alcohol intake: current Alcohol intake frequency: a few times a week Patient Tobacco Use Status: Former Tobacco user e-Cigarette/Vaping Use: Never Used Second Hand Smoke Exposure: Yes service: No Current occupational status: employed 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 1. Little interest or pleasure in doing things: not at all 2. Feeling down, depressed, or hopeless: not at all 3. Trouble falling or staying asleep, or sleeping too much: not at all 4. Feeling tired or having little energy: not at all 5. Poor appetite or overeating: not at all 6. Feeling bad about yourself - or that you are a failure or have let yourself or your family down: not at all 7. Trouble concentrating on things, such as reading the newspaper or watching television: not at all 8. Moving or speaking so slowly that other people could have noticed. Or the opposite - being so fidgety or restless that you have been moving around a lot more than usual: not at all 9. Thoughts that you would be better off or of hurting yourself in some way: not at all Total score: 0 Depression Screening Interpretation: Negative Depression Screening Done: Yes 19385 - PHQ-9 Billing: Yes Source: Developed by Drs. Jose Johnston, Mini Pierce, Immanuel Ponce and colleagues, with an educational radha from [employer]. Thrive Questionnaire Date Thrive assessed: 07/26/24 I am a: Patient What is your living situation today?: I choose not to answer this question Within the past 12 months, did the food you bought not last and you didn't have the money to get more?: I choose not to answer this question Within the past 12 months, did you worry whether your food would run out before you got money to buy more?: I choose not to answer this question Do you have trouble paying for medicines?: I choose not to answer this question Do you have trouble getting transportation to medical appointments?: I choose not to answer this question Do you have trouble paying your heating and electricity bill?: I choose not to answer this question Do you have trouble taking care of your child, family member or friend?: I choose not to answer this question Do you have trouble with day-to-day activities such as bathing, preparing meals, shopping, managing finances, etc.?: I choose not to answer this question Are you currently unemployed and looking for a job?: I choose not to answer this question Are you interested in more education?: I choose not to answer this question Please select the resources that you would like help with: None Currently or been in a relationship where the following occur: I choose not to answer THRIVE Score: 0 AUDIT C Alcohol Use Questionnaire (AUDIT-C) 1. How often do you have a drink containing alcohol?: 2-3 times a week 2. How many drinks containing alcohol do you have on a typical day when you are drinking?: 3 or 4 3. How often do you have six or more drinks on one occasion?: Less than monthly Total Score: 5 Score Reviewed/Action Taken: Yes CLAIRE-7 AMB Questionnaire CLAIRE-7 Date CLAIRE - 7 assessed: 07/26/24 Feeling nervous, anxious, or on edge: 0 = Not at all Not being able to stop or control worryin = Not at all Worrying too much about different things: 0 = Not at all Trouble relaxin = Not at all Being so restless that it is hard to sit still: 0 = Not at all Becoming easily annoyed or irritable: 0 = Not at all Feeling afraid as if something awful might happen: 0 = Not at all Total CLAIRE-7 score (0-4 normal; 5-9 mild; 10-14 moderate; 15-21 severe): 0 Source: Developed by Mini Ayala B.W. Stan, Immanuel Ponce and colleagues, with an educational radha from [employer]. Review of Systems Const Denies chills, Denies fatigue, Denies fever(s), Denies headache(s), Denies malaise and Denies weakness Eyes Denies blurry vision, Denies change in vision, Denies irritation and Denies itchy eyes ENT Denies dysphagia, Denies dizziness, Denies otalgia, Denies headache(s), Denies nasal congestion, Denies neck pain, Denies odynophagia and Denies sore throat Card Denies chest pain, Denies rapid heart rate, Denies irregular heart rhythm, Denies palpitations and Denies dyspnea Resp Denies chest congestion, Reports cough (recurrent, non-productive (see HPI)), Denies dyspnea and Denies wheezing GI Denies abdominal pain, Denies bloating, Denies constipation, Denies dysphagia, Denies heartburn, Denies diarrhea, Denies nausea, Denies odynophagia and Denies vomiting Denies hematuria, Denies difficulty urinating, Denies dysuria, Denies urinary frequency and Denies urinary urgency Musc Denies back pain, Denies arthralgias, Denies joint swelling, Denies muscle weakness and Denies neck pain Skin/Breast Denies change in pigmentation, Denies lesions, Denies rash and Denies unusual bruising Neuro Denies dizziness, Denies headache(s), Denies paresthesias and Denies weakness Endo Denies fatigue and Denies palpitations Aller/Immun Denies itchy eyes and Denies wheezing Physical exam (Primary Care) Vital Signs: Last Vital Signs Pulse 99 07/26/24 13:52 BP 140/88 H 07/26/24 14:20 Pulse Ox 99 07/26/24 13:52 Oxygen Delivery Method Room Air 07/26/24 13:52 BMI result Body Mass Index 27.9 Tobacco/Smoking Status: Tobacco use Status Tobacco use date assessed 07/26/24 07/26/24 13:56 Patient Tobacco Use Status Former Tobacco user 07/26/24 13:56 e-Cigarette/Vaping Use Never Used 07/26/24 13:56 PHQ-9: PHQ-9 Score PHQ-9: Total score 0 07/26/24 14:09 Depression Screening Interpretation: Negative Thrive Assessment: Date of Thrive Assessment Date Thrive assessed 07/26/24 07/26/24 13:56 Currently or been in a relationship where the following occur: I choose not to answer Const General: no acute distress, alert and awake Orientation/consciousness: patient oriented x3 HENMT Head: Yes normocephalic and Yes atraumatic Ears: external ears normal, TM's normal bilaterally and EAC's normal General nose exam: No nasal discharge present Face and sinus: Yes normal facial exam and Yes sinuses nontender Teeth and gingiva: dentition normal Throat: Yes posterior oropharynx normal and Yes tonsils normal (no TP congestion) Eyes Eyelids: Yes eyelids normal Conjunctivae: conjunctivae normal Pupils: Equal, round and reactive pupils present EOM: EOMs intact bilaterally Neck Neck: Yes no lymphadenopathy and Yes supple Thyroid: Thyroid normal Resp Auscultation: clear to auscultation bilaterally, no rales and no wheezes Cardio Rate: regular rate Rhythm: regular rhythm Heart sounds: no murmurs GI Palpation (GI): Soft to palpation, nontender and No hepatosplenomegaly present Auscultation: normal bowel sounds General: Yes no CVA tenderness Back/Spine/Pelvis Back: no CVA tenderness Thoracic/Lumbar Spine: thoracic and lumbar spine normal to inspection Skin Lesions: no lesions Rashes: no rashes Neuro General: patient oriented x3, moves all extremities, no focal motor deficits and CN's II-XI intact bilaterally Cranial nerves: Yes Equal, round and reactive pupils present Cognition (Neuro): normal cognition Gait exam (Neuro): Normal gait present Extrem General: Yes no clubbing, cyanosis or edema Results Reviewed Results Reviewed: Laboratory Tests 07/21/24 07/21/24 15:06 15:11 WBC 5.0 Hgb 14.8 Hct 42.2 Plt Count 201 Sodium 140 Potassium 4.1 Creatinine 0.91 Estimated GFR > 60 Fasting Glucose 82 Calcium 9.5 AST 27 ALT 21 Triglycerides 49 Cholesterol 212 H LDL Cholesterol, Calc 116 H HDL Cholesterol 87 PSA Screen 0.86 Ur Specific [place] <= 1.005 Urine Protein Negative Urine Glucose (UA) Negative Urine Blood Negative Urine Nitrite Negative Ur Leukocyte Esterase Negative Coding Level of Care Code Est Pt Prev Care 40-64y(70823) Diagnoses Annual physical exam Z00.00 Pure hypercholesterolemia E78.00 Elevated LFTs R79.89 Hyperbilirubinemia E80.6 Impaired fasting glucose R73.01 Recurrent cough R05.8 Obstructive sleep apnea G47.33 Degeneration of intervertebral disc of lumbar region with discogenic back pain M51.360 Disc-related pain type: discogenic back pain only Peroneal neuropathy, unspecified laterality G57.30 Laterality: unspecified laterality Vitamin D deficiency E55.9 Peyronie's disease N48.6 Psoriasis L40.9 Insomnia, unspecified type G47.00 Insomnia type: unspecified Overweight (BMI 25.0-29.9) E66.3 Additional Codes PHQ-9 - 41874 - PHQ-9 Billing: Yes ([id number]) Assessment & Plan Assessment & Plan (1) Annual physical exam: Code(s): Z00.00 - Encounter for general adult medical examination without abnormal findings Category: Medical Plan: Results of his labs done last week reviewed and discussed with patient He is up-to-date with his colon cancer screening - had a negative Cologuard test done back in June 2022 (2) Pure hypercholesterolemia: Code(s): E78.00 - Pure hypercholesterolemia, unspecified Category: Medical Plan: Reinforced low cholesterol diet Continue Atorvastatin 20 mg QD Will recheck his labs and fasting lipids in 4 months for follow up (3) Elevated LFTs: Code(s): R79.89 - Other specified abnormal findings of blood chemistry Category: Medical Plan: His LFTs were elevated on his labs in May 2020 but they have been back to normal and have remained normal since; are again normal on his most recent labs Advised that his elevated LFTs a few years ago were most likely due to the effects of alcohol, as patient admitted that he was drinking alcohol frequently before but states that he has since cut back a lot on his drinking Will continue to monitor his LFTs regularly (4) Hyperbilirubinemia: Code(s): E80.6 - Other disorders of bilirubin metabolism Category: Medical Plan: His bilirubin level is again normal on his recent labs LFTs are also normal and patient is asymptomatic Will continue to monitor this regularly; he may need to get an abdominal US done if his numbers continue to go up (5) Impaired fasting glucose: Code(s): R73.01 - Impaired fasting glucose Category: Medical Plan: His FBS was normal at 82 mg/dl on his labs done last week HgbA1c was normal at 5.2% when checked previously Reinforced low calorie diet/exercise as tolerated Patient reports (+) family Hx of diabetes - reassured again that he does NOT have diabetes but needs to be vigilant with his diet and be consistent with regular exercise (6) Recurrent cough: Code(s): R05.8 - Other specified cough Category: Medical Plan: Will send patient for chest x-rays for further evaluation (7) Obstructive sleep apnea: Code(s): G47.33 - Obstructive sleep apnea (adult) (pediatric) Category: Medical Plan: Relates that he has (+) Hx of sleep apnea - was diagnosed at [facility] in 2014, but he could never tolerate wearing a CPAP device when he sleeps at night Will refer him to sleep Medicine for further evaluation and to explore other options for CPAP device (8) Lumbar degenerative disc disease: Code(s): M51.369 - Other intervertebral disc degeneration, lumbar region without mention of lumbar back pain or lower extremity pain Category: Medical Qualifiers: Disc-related pain type: discogenic back pain only Qualified Code(s): M51.360 - Other intervertebral disc degeneration, lumbar region with discogenic back pain only Plan: Reinforced activity and weight lifting restrictions He had some findings of lumbar spine DDD seen incidentally on his abdominal and pelvic CT done at the ER last year (November 2022) Continue Cyclobenzaprine 10 mg TID PRN (9) Peroneal neuropathy: Comment: NCV done on 02/04/2017 at [facility] showed (+) severe bilateral peroneal neuropathy affecting the motor component Code(s): G57.30 - Lesion of lateral popliteal nerve, unspecified lower limb Category: Medical Qualifiers: Laterality: unspecified laterality Qualified Code(s): G57.30 - Lesion of lateral popliteal nerve, unspecified lower limb Plan: His symptoms are manageable / stable currently B12 level was normal when checked previously He has been seen by neurology (Dr. Robertson) in the past and can refer him back for follow up if needed - patient states that he will call for referral if necessary (10) Vitamin D deficiency: Code(s): E55.9 - Vitamin D deficiency, unspecified Category: Medical Plan: Continue Vitamin D3 2000 units QD (11) Peyronie's disease: Comment: sees Dr. Roa (urology) Code(s): N48.6 - Induration penis plastica Category: Medical Plan: Follow up with urology as scheduled (12) Psoriasis: Code(s): L40.9 - Psoriasis, unspecified Category: Medical Plan: Continue Clobetasol 0.05% scalp solution QD PRN as instructed and Otezla 30 mg BID Follow up with dermatology as scheduled (13) Insomnia: Code(s): G47.00 - Insomnia, unspecified Category: Medical Qualifiers: Insomnia type: unspecified Qualified Code(s): G47.00 - Insomnia, unspecified Plan: Sleep hygiene reinforced States that he has tried taking some OTC sleep aids, including Tylenol PM and Melatonin, which help somewhat He was tried on Trazodone 50 mg Q HS PRN but he could not tolerate Rx - feels that the Rx made his insomnia worse Advised to call if he feels he is ready to try a different Rx to help him with his sleep (14) Overweight (BMI 25.0-29.9): Code(s): E66.3 - Overweight Category: Medical Plan: Reinforced diet/exercise as tolerated/lose weight Plan Follow up in 4 months Orders: Orders Complete Blood Count Auto Diff 4 Months D64.9 - Anemia, unspecified Lipid Panel 4 Months E78.00 - Pure hypercholesterolemia, unspecified XR chest 2V 07/26/24 R05.8 - Other specified cough Comprehensive [place]. Panel Fast 4 Months E78.00 - Pure hypercholesterolemia, unspecified Referrals Sleep Medicine Referral G47.33 - Obstructive sleep apnea (adult) (pediatric) Medications: New azithromycin take 500 mg today (day 1), then 250 mg for 4 days (days 2-5) PO 6 tabs 0RF Refilled clobetasol 0.05% 1 appl topical DAILY PRN 50 mL 2RF scalp psoriasis
[2024-07-26 14:20] VITALS: BP 140/88
== END 2024-07-26 14:26 | disposition home or self-care (01) ==
PROVIDERS: PCP Internal Medicine; Visit Provider Internal Medicine
DX: Z00.00 Encounter for general adult medical examination without abnormal findings (principal); E78.00 Pure hypercholesterolemia, unspecified; R79.89 Other specified abnormal findings of blood chemistry; E80.6 Other disorders of bilirubin metabolism; R73.01 Impaired fasting glucose; R05.8 Other specified cough; G47.33 Obstructive sleep apnea (adult) (pediatric); M51.360 Other intervertebral disc degeneration, lumbar region with discogenic back pain only; G57.30 Lesion of lateral popliteal nerve, unspecified lower limb; E55.9 Vitamin D deficiency, unspecified; N48.6 Induration penis plastica; L40.9 Psoriasis, unspecified; G47.00 Insomnia, unspecified; E66.3 Overweight

== ENCOUNTER 2024-08-12 12:50 | Outpatient (AMB) | payer OTHER, SELFPAY ==
[2024-08-12 13:39] VITALS: BMI 27.9
--- NOTE | 2024-08-12 13:39 | MHC.OFFVIS ---
Vital Signs 08/12/24 13:39 Height 5 ft 7 in Weight 178 lb BMI 27.9 Intake Visit Reasons: 07/27 LVM - Letter mailed INP-LIZETT Intake Note: Patient presents for LIZETT. Allergies trazodone Adverse Reaction (Intermediate, Uncoded 08/12/24 13:41) racing thoughts ; made insomnia worse HPI Comments Details: 49 year old male comes to us for Sleep Consultation per PCP Dr. Wells. He goes to sleep at 11pm to midnight and he wakes up at 6am -7am, goes to the bathroom 1x a night, sometimes he wakes up at night and looks at the clock, but does not fall back asleep easily. His partner c/o loud snoring, has to wake him up several times a night, as he stops breathing, and chokes for air. Has daytime sleepiness, consistently tired. He was diagnosed with a history of drop feet bilaterally but that has improved over time. Takes Aprimelast 30mg BID for Psoriasis, Atorvastatin 20mg, and he has a f/h of Hyperlipidemia. Denies headaches, gait issues, vertigo, balance difficulties. His mood, diet and memory are good, he is pretty active during the day. He had a sleep study done in [facility] in Jul 2015 and could not tolerate the mask, now would like to see if he is a good candidate for the [facility] Therapy. [facility] Medical History Obstructive sleep apnea Lumbar degenerative disc disease Vitamin D deficiency Insomnia Peroneal neuropathy Peyronie's disease Psoriasis Overweight (BMI 25.0-29.9) Hyperbilirubinemia Paresthesia of both feet Elevated LFTs Pure hypercholesterolemia Surgical History History of hand surgery Family History Mother Hypertension Father Heart disease Hyperlipidemia Social History Housing: House Alcohol intake: current Alcohol intake frequency: a few times a week Patient Tobacco Use Status: Former Tobacco user e-Cigarette/Vaping Use: Never Used Second Hand Smoke Exposure: Yes service: No Current occupational status: employed 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 Cognitive needs: No Hearing needs: No Vision needs: No Review of Systems ENT Reports Normal hearing present Neuro Reports Normal hearing present Physical Exam Vital Signs: BMI result Body Mass Index 27.9 Const General: cooperative, comfortable and no acute distress Nutritional Appearance: average body habitus Orientation/consciousness: patient oriented x3 Eyes Pupils: Equal, round and reactive pupils present Resp Effort & Inspection: normal respiratory effort and able to speak in complete sentences Neuro General: patient oriented x3 and moves all extremities Cranial nerves: Yes CN's II-XII intact bilaterally, Yes Facial sensation intact/muscles of mastication intact, Yes Equal, round and reactive pupils present, Yes Normal accommodation reflex present, Yes Bilaterally intact EOM present, Yes Nystagmus not present, Yes Midline tongue present, Yes Symmetric palate elevation present, Yes Normal hearing present, Yes Ability to bilaterally rotate head present and Yes Ability to bilaterally elevate shoulders present Gait exam (Neuro): Normal gait present Motor exam (neuro): 5/5 motor strength present throughout and Normal motor muscle tone present throughout Deep tendon reflexes (DTR's): Right triceps reflex intensity grade: 2+, Left triceps reflex intensity grade: 2+, Rt Biceps (C5, C6): 2+, Left biceps reflex intensity grade: 2+, Right brachioradialis reflex intensity grade: 2+, Left brachioradialis reflex intensity grade: 2+, Right patellar reflex intensity grade: 2+ and Left patellar reflex intensity grade: 2+ Coordination: [id number] test normal Psych Appearance: grossly normal Affect: normal affect Attitude: cooperative Thought content: Normal thought content present Insight: Good insight present (Psych) Judgement: Good judgement present (Psych) Assessment & Plan Assessment & Plan (1) Loud snoring: Code(s): R06.83 - Snoring Category: Medical (2) Insomnia: Code(s): G47.00 - Insomnia, unspecified Category: Medical Qualifiers: Insomnia type: unspecified Qualified Code(s): G47.00 - Insomnia, unspecified Plan HST- Excessive daytime fatigue and loud snoring, gasping for air and apneas. ENT referral for Inspire Therapy, patient would like to be evaluated for the DISE procedure. Continue to control cholesterol, take all meds as prescribed, lifestyle modificiations with exercise and diet are the best approach to controlling Cholesterol, with Mediterranean diet and Dash Diet. Orders: Orders RT home sleep study Today G47.00 - Insomnia, unspecified, R06.83 - Snoring Referrals Ear/Nose/Throat Referral G47.00 - Insomnia, unspecified, R06.83 - Snoring Coding Level of Care Code New Pt Level 3 (30451) Diagnoses Loud snoring R06.83 Insomnia, unspecified type G47.00 Insomnia type: unspecified Sleep Questionnaire Difficulty falling asleep: Yes Difficulty staying asleep?: Yes Number of arousals: 4-5x Snoring: Yes Witnessed apneas: Yes (by partner ) Gasping arousals: Yes Nocturia: No GERD: No Vivid dreams: No Acting out dreams: No Abnormal behavior in sleep: No Abnormal movements in sleep: No Morning headaches: No Excessive daytime sleepiness: Yes (occasionally 1x / week) Daytime naps: Yes (occasionally 1x / week) Restless legs: Yes (Has drop foot bilaterally) Hallucinations: No Sleep paralysis: No Drop attacks: No Sleep Study: Yes (JUL 2015 [facility] ) CPAP: No (Could not tolerate mask)
== END 2024-08-12 14:15 | disposition home or self-care (01) ==
PROVIDERS: PCP Internal Medicine; Visit Provider Physician Assistant Medical
DX: R06.83 Snoring (principal); G47.00 Insomnia, unspecified
CPT/HCPCS: 99203

== ENCOUNTER → 2024-08-12 12:50 | Outpatient (BNVA) | payer OTHER, SELFPAY | PROVIDERS: PCP Internal Medicine; Visit Provider Physician Assistant Medical | DX: R06.83 Snoring (principal); G47.00 Insomnia, unspecified; Z79.899 Other long term (current) drug therapy | CPT/HCPCS: 99202 ==

== ENCOUNTER → 2024-09-27 07:54 | Outpatient (REF) | payer OTHER, SELFPAY | LOC: HO.SL 07:54 | PROVIDERS: PCP Internal Medicine; Visit Provider Physician Assistant Medical | DX: G47.00 Insomnia, unspecified (principal); R06.83 Snoring | CPT/HCPCS: 95806 ==

== ENCOUNTER → 2024-09-27 08:14 | Outpatient (BNV) | payer OTHER, SELFPAY | PROVIDERS: PCP Internal Medicine; Visit Provider Psychiatry & Neurology Neurology | DX: G47.33 Obstructive sleep apnea (adult) (pediatric) (principal) | CPT/HCPCS: 95806 ==

== ENCOUNTER 2024-11-09 09:40 | Outpatient (REF) | payer OTHER, SELFPAY ==
[2024-11-09 09:49] LABS: MANUAL DIFF FLAG NO
[2024-11-09 10:39] LABS: Basophils Percent Auto 0.8 % (0-2); Eosinophils Absolute Auto 0.2 X10*3/uL (0.0-0.4); Eosinophils Percent Auto 4.4 % (0-4); Imm Gran Abs Auto 0.01 X10*3/uL (0.00-0.03); Imm Gran Pct Auto 0.2 % (0.0-0.4); Lymphocytes Absolute Auto 2.1 X10*3/uL (1.2-4.9); Lymphocytes Percent Auto 43.5 % (20-40); Mean Corpuscular HGB Conc 34.1 g/dl (31.0-36.0); Mean Corpuscular Hemoglobin 32.5 pg (27.0-33.0); Mean Corpuscular Volume 95.4 fL (80.0-98.0); Mean Platelet Volume 10.4 fL (9.4-12.4); Monocytes Absolute Auto 0.6 X10*3/uL (0.1-1.2); Monocytes Percent Auto 13.5 % (2-11); Neutrophils Absolute Auto 1.8 x10*3/uL (2.0-8.3); Neutrophils Percent Auto 37.6 % (45-73); Platelet Count 220 X10*3/uL (160-400); Red Blood Count 4.61 X10*6/uL (4.60-5.80); Red Cell Distribution Width 13.3 % (11.0-16.0); White Blood Count 4.7 X10*3/uL (4.8-10.8)
[2024-11-09 12:05] LABS: Alanine Aminotransferase 41 U/L (0-40); Albumin Level 4.2 g/dL (3.5-5.0); Alkaline Phosphatase 57 U/L (39-117); Anion Gap 9 (12-20); Aspartate Amino Transferase 32 U/L (5-37); Bilirubin Total 1.1 mg/dL (0.0-1.0); Blood Urea Nitrogen 14 mg/dL (9-16); Calcium 9.2 mg/dL (8.4-10.2); Carbon Dioxide 27 mmol/L (22-29); Chloride 108 mmol/L (96-108); Cholesterol 205 mg/dL (<200); Estimated Glomerular Filt Rate > 60; Glucose Fasting 103 mg/dL (60-99); HDL Cholesterol 88 mg/dL (>40); LDL Cholesterol Calculated 98 mg/dL (<100); Potassium 4.2 mmol/L (3.3-5.1); Sodium 140 mmol/L (135-145); Total Protein 6.9 g/dL (6.5-8.0); Triglycerides 98 mg/dL (<150)
== END 2024-11-09 09:41 | disposition home or self-care (01) ==
LOC: HO.LAB 09:40
PROVIDERS: PCP Internal Medicine; Visit Provider Internal Medicine
DX: D64.9 Anemia, unspecified (principal); E78.00 Pure hypercholesterolemia, unspecified
CPT/HCPCS: 36415; 80053; 80061; 85025

== ENCOUNTER 2024-11-10 08:00 | Outpatient (AMB) | payer OTHER, SELFPAY ==
[2024-11-10 08:06] VITALS: BP 128/78; PULSE 81; O2SAT 98; BMI 26.8
--- NOTE | 2024-11-10 08:06 | A.OFFVIS_ITS ---
Vital Signs 11/10/24 08:06 Height 5 ft 7 in Weight 171 lb BMI 26.8 BP 128/78 Blood Pressure Location Lt brachial Position Sitting Pulse 81 Pulse Source Pulse Oximeter Pulse Oximetry (%) 98 Oxygen Delivery Method Room Air Intake Visit Reasons: 3 mnts f/u appt Intake Note: Patient presents for 3 month follow up LIZETT. Sleep study in chart done on 09/27/24. Allergies dander and pollen Allergy (Mild, Uncoded 11/10/24 08:53) Dry Eye HPI Comments Details: 49 year old male comes to us for Sleep Consultation per PCP Dr. Wells. HST was conducted in Sep 2024 and AHI is 12, supine AHI was 43, and Oxygen Mitchell to 83% He goes to sleep at 11pm to midnight and he wakes up at 6am -7am, goes to the bathroom 1x a night, sometimes he wakes up at night and looks at the clock, but does not fall back asleep easily. He has an URI with constant coughing, denies sob, was given z-pack by primary. His partner c/o loud snoring, has to wake him up several times a night, as he stops breathing, and chokes for air. He c/o daytime sleepiness, and consistently tired. Denies headaches, gait issues, vertigo, balance difficulties. Jessica RLS symptoms. Takes Aprimelast 30mg BID for Psoriasis, Atorvastatin 20mg, and he has a f/h of Hyperlipidemia. His mood, diet and memory are good, he is pretty active during the day, he works in [employer]. He had a sleep study done in Sep 2024, and Jul 2015 and could not tolerate the mask, now would like to see if he is a good candidate for the INspire Therapy, he is on the list for the procedure evaluation with ENT and device implantation. Will start him on CPAP per recommendations today at APAP [id number] and try various masks to see if he can tolerate the nasal mask or canula and adjust pressures as it may take 6+ months for DISE procedure. [facility] Medical History Obstructive sleep apnea Lumbar degenerative disc disease Vitamin D deficiency Insomnia Peroneal neuropathy Peyronie's disease Psoriasis Overweight (BMI 25.0-29.9) Hyperbilirubinemia Paresthesia of both feet Elevated LFTs Pure hypercholesterolemia Surgical History History of hand surgery Family History Mother Hypertension Father Heart disease Hyperlipidemia Social History Housing: House Alcohol intake: current Alcohol intake frequency: a few times a week Patient Tobacco Use Status: Former Tobacco user e-Cigarette/Vaping Use: Never Used Second Hand Smoke Exposure: Yes service: No Current occupational status: employed 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 Cognitive needs: No Hearing needs: No Vision needs: No Review of Systems Const All systems reviewed & are unremarkable except as noted in HPI and below ENT Reports Normal hearing present Neuro Reports Normal hearing present Physical Exam Vital Signs: Last Vital Signs Pulse 81 11/10/24 08:06 BP 128/78 11/10/24 08:06 Pulse Ox 98 11/10/24 08:06 Oxygen Delivery Method Room Air 11/10/24 08:06 BMI result Body Mass Index 26.8 Const General: cooperative, comfortable and no acute distress Nutritional Appearance: average body habitus Orientation/consciousness: patient oriented x3 Resp Effort & Inspection: normal respiratory effort and able to speak in complete sentences Neuro General: patient oriented x3 and moves all extremities Cranial nerves: Yes CN's II-XII intact bilaterally, Yes Facial sensation intact/muscles of mastication intact, Yes Normal accommodation reflex present, Yes Bilaterally intact EOM present, Yes Nystagmus not present, Yes Midline to ngue present, Yes Symmetric palate elevation present, Yes Normal hearing present, Yes Ability to bilaterally rotate head present and Yes Ability to bilaterally elevate shoulders present Gait exam (Neuro): Normal gait present Motor exam (neuro): 5/5 motor strength present throughout and Normal motor muscle tone present throughout Deep tendon reflexes (DTR's): Right triceps reflex intensity grade: 2+, Left triceps reflex intensity grade: 2+, Rt Biceps (C5, C6): 2+, Left biceps reflex intensity grade: 2+, Right brachioradialis reflex intensity grade: 2+, Left brachioradialis reflex intensity grade: 2+, Right patellar reflex intensity grade: 2+ and Left patellar reflex intensity grade: 2+ Coordination: [id number] test normal Psych Appearance: grossly normal Affect: normal affect Attitude: cooperative Thought content: Normal thought content present Insight: Good insight present (Psych) Judgement: Good judgement present (Psych) Results Reviewed Results Reviewed: HST AHI is 12.0 with supine AHI at 43.0 and Oxygen Mitchell to 83%. Jul 2024 Chest Xray Bronchial wall thickening, inflammatory process likely. Assessment & Plan Assessment & Plan (1) Loud snoring: Code(s): R06.83 - Snoring Category: Medical (2) Insomnia: Code(s): G47.00 - Insomnia, unspecified Category: Medical Qualifiers: Insomnia type: unspecified Qualified Code(s): G47.00 - Insomnia, unspecified (3) Obstructive sleep apnea: Code(s): G47.33 - Obstructive sleep apnea (adult) (pediatric) Category: Medical (4) Cough: Code(s): R05.9 - Cough, unspecified Category: Medical Qualifiers: Cough type: other Qualified Code(s): R05.8 - Other specified cough (5) Chronic coughing: Code(s): R05.3 - Chronic cough Category: Medical (6) Vitamin D deficiency: Code(s): E55.9 - Vitamin D deficiency, unspecified Category: Medical Plan HST- Completed and CPAP RX sent AHI was 12 and 43 in supine, Oxygen Mitchell to 83%. Labs reviewed. Excessive daytime fatigue and Cough, he agrees to try CPAP while awaiting ENT evaluation for DISE procedure. He will f/u with Dr. Alba's office to see if he can be seen sooner, as he is a good candidate for Inspire. Continue Vitamin D Start Magnesium 400mg PO daily at bedtime for sleep. F/U with PCP for Chronic Cough. Patient Instructions: Sleep Hygiene provided: set a scheduled bedtime and wake time to help regulate the circadian rhythm and balance the release of pituitary hormones. Sleep in a dark room, temperatures below 68 degrees, and no devices n bed. Limit caffeinated products 6 hours prior to bed, and limit fluids 2-4 hours prior to bed. Gentle night yoga, diffusing essential oils, and playing soft music can be relaxing. He will try the nasal cannula or nose mask to see if that is a better fit for him, in the past he was not able to tolerate pressures and the mask. Coding Level of Care Code Est Pt Level 4 (16736) Diagnoses Loud snoring R06.83 Insomnia, unspecified type G47.00 Insomnia type: unspecified Obstructive sleep apnea G47.33 Other cough R05.8 Cough type: other Chronic coughing R05.3 Vitamin D deficiency E55.9 Time Spent (min) 20
== END 2024-11-10 08:40 | disposition home or self-care (01) ==
LOC: HO.HSMS 08:00
PROVIDERS: PCP Internal Medicine; Visit Provider Physician Assistant Medical
DX: R06.83 Snoring (principal); G47.00 Insomnia, unspecified; G47.33 Obstructive sleep apnea (adult) (pediatric); R05.8 Other specified cough; R05.3 Chronic cough; E55.9 Vitamin D deficiency, unspecified
CPT/HCPCS: 99214

== ENCOUNTER → 2024-11-10 08:00 | Outpatient (BNVA) | payer OTHER, SELFPAY | PROVIDERS: PCP Internal Medicine; Visit Provider Physician Assistant Medical | DX: R06.83 Snoring (principal); R05.8 Other specified cough; R05.3 Chronic cough; G47.33 Obstructive sleep apnea (adult) (pediatric); E66.9 Obesity, unspecified; G47.00 Insomnia, unspecified | CPT/HCPCS: 99212 ==

== ENCOUNTER 2024-11-17 08:33 | Outpatient (REF) | payer OTHER, SELFPAY ==
--- NOTE | ~2024-11-17 | XR_ITS ---
EXAMINATION: XR CHEST CLINICAL INFORMATION: R05.3 - Chronic cough COMPARISON: 07/26/2024, 12/02/2022. TECHNIQUE: 2 views of the chest were obtained. FINDINGS: The cardiac, hilar, and mediastinal contours are normal. The lungs are clear bilaterally. There is no pneumothorax or pleural effusion. There is no focal osseous or soft tissue abnormality. XR/XR chest 2V IMPRESSION: Normal chest. Electronically signed by: Darwin Prabhakar MD 11/17/2024 09:34 AM EDT
== END 2024-11-17 08:34 | disposition home or self-care (01) ==
LOC: HO.XRAY 08:33
PROVIDERS: PCP Internal Medicine
DX: R05.3 Chronic cough (principal); G47.33 Obstructive sleep apnea (adult) (pediatric); R73.01 Impaired fasting glucose; E66.3 Overweight; E78.00 Pure hypercholesterolemia, unspecified
CPT/HCPCS: 71046; 99212

== ENCOUNTER 2024-11-17 08:33 | Outpatient (AMB) | payer OTHER, SELFPAY ==
--- NOTE | 2024-11-17 08:36 | A.OFFPC_ITS ---
Vital Signs 11/17/24 08:39 Height 5 ft 7 in Weight 167 lb 6 oz BMI 26.2 BP 124/78 Blood Pressure Location Lt brachial Position Sitting Pulse 92 Pulse Source Pulse Oximeter Temp 97.3 F Temp Source Temporal Artery Scan Pulse Oximetry (%) 98 Oxygen Delivery Method Room Air Intake Visit Reasons: 4 months follow up Intake Note: Patient is here to follow up on LDDD, LIZETT, Hypercholesterolemia. Editor School Photograph Required: No Lace Mender: Not Required per policy Accompanied by: Self / Same As Patient Allergies dander and pollen Allergy (Mild, Uncoded 11/17/24 08:45) Dry Eye Medication List - Last Reconciled 11/17/24 by Sandra Handy PA-C apremilast 30 mg PO BID atorvastatin 20 mg PO DAILY clobetasol 0.05% 1 appl topical DAILY PRN cyclobenzaprine 10 mg PO Q8H PRN ibuprofen 800 mg PO Q8H PRN Tobacco use date assessed: 11/17/24 Dental Screening Dental Screen Date: 11/17/24 Did you have a dental visit in the last 12 months?: Yes Did you have a dental problem in the last 6 months where you did not have access to dental care?: No Was dental information given to patient?: Patient has dentist HPI 4 months follow up HPI Details 49 year old male with past medical histo ry of hypercholesterolemia, elevated LFTs, psoriasis, impaired glucose tolerance, and LIZETT last seen 07/[address] Wells coming in for follow up. In review of the notes, patient was seen by Neurology 10/2024 trial of CPAP while waiting for ENT evaluation. Presenting with a persistent cough. The cough has continued since July and remains even after two courses of Z-Packs. Despite the presence of phlegm, the patient reports it is not visible. Symptom timing is consistent throughout the day without worsening at specific times. A previous chest X-ray showed lung buildup, with initial considerations for inflammation or infection. Laboratory findings included low white blood cells, elevated eosinophils, fluctuating liver function, and mildly elevated blood glucose levels. [facility] Medical History Obstructive sleep apnea Lumbar degenerative disc disease Vitamin D deficiency Insomnia Peroneal neuropathy Peyronie's disease Psoriasis Overweight (BMI 25.0-29.9) Hyperbilirubinemia Paresthesia of both feet Elevated LFTs Pure hypercholesterolemia Surgical History History of hand surgery Family History Mother Hypertension Father Heart disease Hyperlipidemia Social History Housing: House Alcohol intake: current Alcohol intake frequency: a few times a week Patient Tobacco Use Status: Former Tobacco user e-Cigarette/Vaping Use: Never Used Second Hand Smoke Exposure: Yes service: No Current occupational status: employed 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 1. Little interest or pleasure in doing things: not at all 2. Feeling down, depressed, or hopeless: not at all 3. Trouble falling or staying asleep, or sleeping too much: not at all 4. Feeling tired or having little energy: not at all 5. Poor appetite or overeating: not at all 6. Feeling bad about yourself - or that you are a failure or have let yourself or your family down: not at all 7. Trouble concentrating on things, such as reading the newspaper or watching television: not at all 8. Moving or speaking so slowly that other people could have noticed. Or the opposite - being so fidgety or restless that you have been moving around a lot more than usual: not at all 9. Thoughts that you would be better off or of hurting yourself in some way: not at all Total score: 0 Depression Screening Interpretation: Negative Depression Screening Done: Yes Source: Developed by Drs. Jose Johnston, Mini Pierce, Immanuel Ponce and colleagues, with an educational radha from [employer]. Thrive Questionnaire Date Thrive assessed: 11/17/24 AUDIT C Alcohol Use Questionnaire (AUDIT-C) 1. How often do you have a drink containing alcohol?: 2-3 times a week 2. How many drinks containing alcohol do you have on a typical day when you are drinking?: 3 or 4 Total Score: 4 CLAIRE-7 AMB Questionnaire CLAIRE-7 Date CLAIRE - 7 assessed: 11/17/24 Feeling nervous, anxious, or on edge: 0 = Not at all Not being able to stop or control worryin = Not at all Worrying too much about different things: 0 = Not at all Trouble relaxin = Not at all Being so restless that it is hard to sit still: 0 = Not at all Becoming easily annoyed or irritable: 0 = Not at all Feeling afraid as if something awful might happen: 0 = Not at all Total CLAIRE-7 score (0-4 normal; 5-9 mild; 10-14 moderate; 15-21 severe): 0 Source: Developed by Drs. Jose Johnston, Mini Pierce, Immanuel Ponce and colleagues, with an educational radha from [employer]. Review of Systems Const Denies body aches, Denies chills, Denies fever(s), Denies headache(s) and Denies poor appetite Eyes Reports no additional complaints ENT Denies dizziness and Denies headache(s) Card Denies chest pain, Denies syncope, Denies edema, Denies irregular heart rhythm, Denies lightheadedness and Denies dyspnea Resp Reports cough, Denies hemoptysis, Denies excessive phlegm production and Denies dyspnea GI Reports no additional complaints Reports no additional complaints Musc Reports no additional complaints and Denies abnormal gait Skin/Breast Reports system reviewed and no additional complaints, except as documented Neuro Denies abnormal gait, Denies dizziness, Denies syncope and Denies headache(s) Psych Reports no additional complaints Physical exam (Primary Care) Vital Signs: Last Vital Signs Temp 97.3 F 11/17/24 08:39 Pulse 92 11/17/24 08:39 BP 124/78 11/17/24 08:39 Pulse Ox 98 11/17/24 08:39 Oxygen Delivery Method Room Air 11/17/24 08:39 BMI result Body Mass Index 26.2 Tobacco/Smoking Status: Tobacco use Status Tobacco use date assessed 11/17/24 11/17/24 08:43 Patient Tobacco Use Status Former Tobacco user 11/17/24 08:43 e-Cigarette/Vaping Use Never Used 11/17/24 08:43 PHQ-9: PHQ-9 Score PHQ-9: Total score 0 11/17/24 08:43 Depression Screening Interpretation: Negative Thrive Assessment: Date of Thrive Assessment Date Thrive assessed 11/17/24 11/17/24 08:43 Const General: cooperative, healthy appearing, comfortable and no acute distress Orientation/consciousness: patient oriented x3 HENMT Head: Yes normocephalic Ears: hearing grossly normal bilaterally General nose exam: Normal external nose present Eyes General: appearance normal, both eyes and all related structures Conjunctivae: conjunctivae normal Neck Neck: Yes full ROM and Yes no lymphadenopathy Resp Effort & Inspection: normal respiratory effort Auscultation: clear to auscultation bilaterally, no crackles, no rales, no rhonchi and no wheezes Cardio Rate: regular rate Rhythm: regular rhythm Skin General skin exam: no rashes or lesions noted Neuro General: patient oriented x3 Gait exam (Neuro): Normal gait present Extrem General: Yes normal to inspection, Yes full ROM and No edema Psych Affect: normal affect Attitude: cooperative Insight: Good insight present (Psych) Judgement: Good judgement present (Psych) Coding Level of Care Code Est Pt Level 3 (47638) Diagnoses Chronic coughing R05.3 Obstructive sleep apnea G47.33 Impaired fasting glucose R73.01 Overweight (BMI 25.0-29.9) E66.3 Pure hypercholesterolemia E78.00 Assessment & Plan Assessment & Plan (1) Chronic coughing: Code(s): R05.3 - Chronic cough Category: Medical Plan: The plan involves pursuing further investigation given the persistent cough and lung findings visible on prior chest X-ray, considering both inflammatory and infectious causes. Elevated eosinophils and low white blood cells point to a potential allergic etiology such as asthma, thus pulmonary testing will help clarify the diagnosis. A repeat urgent chest X-ray will be conducted to assess for infection. Meanwhile, an [id number] antihistamine was recommended to address any allergy-related cough and referral to a customer development manager for expert assessment is arranged. This comprehensive approach will ensure thorough evaluation and appropriate management. (2) Obstructive sleep apnea: Code(s): G47.33 - Obstructive sleep apnea (adult) (pediatric) Category: Medical Plan: Patient is currently working with Neurology to establish on CPAP while he awaits further evaluation from ENT. He has appt in March with ENT. (3) Impaired fasting glucose: Code(s): R73.01 - Impaired fasting glucose Category: Medical Plan: Decrease the amount of carbohydrates such as pasta, bread, rice, and potatoes and limit the amount of sweets. Although fruits are generally healthy they should be eaten in moderation as they are still high in sugar. (4) Overweight (BMI 25.0-29.9): Code(s): E66.3 - Overweight Category: Medical Plan: Healthy diet and regular exercise is encouraged. (5) Pure hypercholesterolemia: Code(s): E78.00 - Pure hypercholesterolemia, unspecified Category: Medical Plan: Avoid foods that are high in cholesterol such as red meat, fried foods, eggs and baked goods. Triglyceride goal of less than 150 and LDL goal of less than 100. Continue on Atorvastatin 20 mg. Last bloodwork within goal for this patient. Plan This note was constructed using voice recognition software. While every effort has been made to ensure accuracy and certified coatings inspector, still areas may have been included sometimes these areas may affect the content or meeting of the given symptoms. Total time spent caring for the patient today was 20 minutes. This includes time spent before the visit reviewing the chart, time spent during the visit, and time spent after the visit and documentation. Patient was informed and verbally consented to the use of an ambient scribe for clinic note documentation during this visit. Orders: Orders PFT pulmonary function test Today R05.3 - Chronic cough XR chest 2V Today R05.3 - Chronic cough Referrals Pulmonology Referral R05.3 - Chronic cough
[2024-11-17 08:39] VITALS: BP 124/78; PULSE 92; TEMP 36.3; O2SAT 98; BMI 26.2
== END 2024-11-17 09:13 | disposition home or self-care (01) ==
LOC: HO.HMCH 08:34
PROVIDERS: PCP Internal Medicine
DX: R05.3 Chronic cough (principal); G47.33 Obstructive sleep apnea (adult) (pediatric); R73.01 Impaired fasting glucose; E66.3 Overweight; E78.00 Pure hypercholesterolemia, unspecified

== ENCOUNTER → 2024-11-17 09:22 | Outpatient (BNV) | payer OTHER, SELFPAY | PROVIDERS: PCP Internal Medicine; Visit Provider Radiology Diagnostic Radiology | DX: R05.3 Chronic cough (principal) | CPT/HCPCS: 71046 ==

== ENCOUNTER 2024-12-28 07:54 | Outpatient (REF) | payer OTHER, SELFPAY ==
--- NOTE | 2024-12-28 08:00 | PFT_ITS ---
Spirometry [] Lung Volumes [] Diffusion Capacity [] Methacholine Challenge [] Flow Volume Loops [] MVV [] MIP/MEP(Max inspiratory pressure/Max expiratory pressure) [] 6 Minute Walk Test [] ABG [] Interpretation [] MTDD
[2024-12-28 08:32] VITALS: PULSE 78; O2SAT 99
== END 2024-12-28 07:55 | disposition home or self-care (01) ==
LOC: HO.RESP 07:54
PROVIDERS: PCP Internal Medicine
DX: R05.3 Chronic cough (principal)
CPT/HCPCS: 94010; 94640; 94727; 94729

== ENCOUNTER → 2024-12-28 08:00 | Outpatient (BNV) | payer OTHER, SELFPAY | PROVIDERS: PCP Internal Medicine; Visit Provider Internal Medicine Pulmonary Disease | DX: R05.3 Chronic cough (principal) | CPT/HCPCS: 94060; 94727; 94729 ==

== ENCOUNTER 2025-01-13 10:57 | Outpatient (REF) | payer OTHER, SELFPAY ==
[2025-01-13 11:31] LABS: MANUAL DIFF FLAG NO
[2025-01-13 12:16] LABS: Basophils Absolute Auto 0.1 X10*3/uL (0.0-0.2); Eosinophils Absolute Auto 0.1 X10*3/uL (0.0-0.4); Eosinophils Percent Auto 2.3 % (0-4); Hematocrit 42.5 % (42.0-52.0); Hemoglobin 14.3 g/dl (14.0-18.0); Imm Gran Abs Auto 0.02 X10*3/uL (0.00-0.03); Imm Gran Pct Auto 0.4 % (0.0-0.4); Lymphocytes Absolute Auto 1.7 X10*3/uL (1.2-4.9); Lymphocytes Percent Auto 33.4 % (20-40); Mean Corpuscular HGB Conc 33.6 g/dl (31.0-36.0); Mean Corpuscular Volume 95.1 fL (80.0-98.0); Mean Platelet Volume 10.5 fL (9.4-12.4); Monocytes Absolute Auto 0.8 X10*3/uL (0.1-1.2); Neutrophils Absolute Auto 2.5 x10*3/uL (2.0-8.3); Neutrophils Percent Auto 47.9 % (45-73); Platelet Count 255 X10*3/uL (160-400); Red Blood Count 4.47 X10*6/uL (4.60-5.80); Red Cell Distribution Width 13.6 % (11.0-16.0); White Blood Count 5.2 X10*3/uL (4.8-10.8)
== END 2025-01-13 10:58 | disposition home or self-care (01) ==
LOC: HO.LAB 10:57
PROVIDERS: PCP Internal Medicine; Visit Provider Internal Medicine
DX: R05.8 Other specified cough (principal); G47.33 Obstructive sleep apnea (adult) (pediatric); L40.9 Psoriasis, unspecified; J34.3 Hypertrophy of nasal turbinates; Z87.891 Personal history of nicotine dependence
CPT/HCPCS: 36415; 85025; 99202

== ENCOUNTER 2025-01-13 10:57 | Outpatient (AMB) | payer OTHER, SELFPAY ==
[2025-01-13 11:06] VITALS: BP 108/70; PULSE 80; O2SAT 98; BMI 24.9
--- NOTE | 2025-01-13 11:06 | A.OFFVIS_ITS ---
Vital Signs 01/13/25 11:06 Height 5 ft 7 in Weight 158 lb 11.725 oz BMI 24.9 BP 108/70 Blood Pressure Location Lt brachial Position Sitting Pulse 80 Pulse Source Pulse Oximeter Pulse Oximetry (%) 98 Oxygen Delivery Method Room Air Intake Visit Reasons: Chronic cough Intake Note: pt is here as a new patient for a chronic cough that has some production of phlegm some green in color. 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 HE IS A PAST SMOKER, BUT QUIT ABOUT 10-12 YEARS AGO. NOW FOR THE LAST 6 MONTHS AFTER A BOUT OF COMMON COLD, HE CONTINUES TO HAVE INTERMITTENT COUGH, WHICH BECOMES WORSE TIMES. INITIALLY HE DID HAVE EXPECTORATION OF GREENISH PHLEGM. WAS TREATED WITH A COURSE OF ANTIBIOTICS, BUT EVEN AFTER THAT HE CONTINUES TO HAVE FREQUENT COUGH. HE IS NOT AWARE OF ANY SPECIFIC TRIGGERS CAUSING COUGH. HE HAS NO ASSOCIATED WHEEZING. THE COUGH GETS BETTER FOR A WHILE AND THEN FLARES UP AGAIN. 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 THIS GENTLEMAN IS BEING TREATED FOR PSORIASIS WITH APREMILAST 30 MG B.I.D. HE IS OF A RELATIVELY NORMAL WEIGHT BUT DOES HAVE SYMPTOMS OF FREQUENT AWAKENING AT NIGHT, WITH DAYTIME FATIGUE. RECENT HOME SLEEP TEST CONFIRMED DIAGNOSIS OF SLEEP APNEA WHICH IS MILD, WITH TOTAL SLEEP TIME AHI OF 11. PATIENT HAS PREVIOUS HISTORY OF SLEEP APNEA WELL. HE DOES NOT TOLERATE ANY MASK NASAL OR FULLFACE. THIS TIME HE WAS OFFERED A TRIAL OF NASAL MASK BUT HE DID NOT USE IT. HE IS LOOKING INTO HAVING TREATMENT WITH INSPIRE , AND CURRENTLY UNDERGOING PRE PROCEDURE EVALUATION. [facility] Medical History Obstructive sleep apnea Lumbar degenerative disc disease Vitamin D deficiency Insomnia Peroneal neuropathy Peyronie's disease Psoriasis Overweight (BMI 25.0-29.9) Hyperbilirubinemia Paresthesia of both feet Elevated LFTs Pure hypercholesterolemia Surgical History History of hand surgery Family History Mother Hypertension Father Heart disease Hyperlipidemia Social History Housing: House Alcohol intake: current Alcohol intake frequency: a few times a week Patient Tobacco Use Status: Former Tobacco user e-Cigarette/Vaping Use: Never Used Second Hand Smoke Exposure: Yes service: No Current occupational status: employed 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 Cognitive needs: No Hearing needs: No Vision needs: No Review of Systems Const All systems reviewed & are unremarkable except as noted in HPI and below Eyes Reports no additional complaints ENT Reports nasal congestion (CHRONIC ) and Reports nasal discharge Card Reports no additional complaints Resp Reports as per HPI GI Reports no additional complaints Reports no additional complaints Musc Reports no additional complaints Skin/Breast Reports other (PATIENT BEING TREATED FOR PSORIASIS) Neuro Reports no additional complaints Psych Reports no additional complaints Endo Reports no additional complaints Bert/Lymph Reports no additional complaints Aller/Immun Reports no additional complaints Physical Exam Vital Signs: Last Vital Signs Pulse 80 01/13/25 11:06 BP 108/70 01/13/25 11:06 Pulse Ox 98 01/13/25 11:06 Oxygen Delivery Method Room Air 01/13/25 11:06 BMI result Body Mass Index 24.9 Const General: healthy appearing, comfortable, no acute distress, alert and awake Orientation/consciousness: patient oriented x3 HEENT Head: Yes normal to inspection General nose exam: No nasal polyps present, mucous membranes and turbinates abnormal (HE HAS BILATERAL ENLARGED NASAL TURBINATES) and No nasal discharge present Face and sinus: Yes sinuses nontender Mouth: oropharynx normal Throat: Yes posterior oropharynx normal Eyes General: appearance normal, both eyes and all related structures Neck Neck: Yes normal visual inspection, Yes no lymphadenopathy, Yes trachea midline and Yes no JVD Thyroid: Thyroid normal Chest Chest palpation & inspection: normal inspection of the chest, normal palpation of entire chest wall and no tenderness Resp Effort & Inspection: normal respiratory effort Auscultation: clear to auscultation bilaterally, no crackles and no wheezes Cardio Palpation: normal PMI Rate: regular rate Rhythm: regular rhythm Heart sounds: no gallops and no murmurs Peripheral pulses: Peripheral pulses 2+ throughout GI Palpation (GI): Soft to palpation, nontender, No hepatosplenomegaly present and no masses Auscultation: normal bowel sounds Back/Spine/Pelvis Thoracic/Lumbar Spine: thoracic and lumbar spine normal to inspection Skin General skin exam: no rashes or lesions noted Neuro General: patient oriented x3 and no focal motor deficits Cranial nerves: Yes CN's II-XII intact bilaterally Extrem General: Yes normal to inspection, Yes no clubbing, cyanosis or edema and Yes no calf tenderness Psych Appearance: grossly normal and well kempt Speech and movement: Normal speech and movement present Results Reviewed Results Reviewed: PULMONARY FUNCTION TEST ON 12/28/2024. RESULTS ARE REVIEWED WITH HIM. ESSENTIALLY NORMAL AND THERE IS NO EVIDENCE OF RESTRICTIVE OR OBSTRUCTIVE AIRWAY DISORDER. ALSO NO SIGNIFICANT RESPONSE TO BRONCHODILATOR THERAPY. CBC WITH DIFF : THERE IS NO EVIDENCE OF EOSINOPHILIA. Assessment & Plan Assessment & Plan (1) Cough: Comment: HE PAST SMOKER BUT QUIT MORE THAN 12 YEARS AGO. PULMONARY FUNCTION TEST IS NORMAL. HISTORY OF COUGH FOR ABOUT 6 MONTHS AFTER A NONSPECIFIC UPPER RESPIRATORY INFECTION. MOST LIKELY CAUSE IS CHRONIC ALLERGIC RHINITIS/ AND UPPER AIRWAYS HYPERSENSITIVITY SYNDROME. SYMPTOM MEDICALLY IT IS JUST THE COUGH BUT HE IS NOT BOTHERED BY THIS MUCH. Code(s): R05.9 - Cough, unspecified Category: Medical Qualifiers: Cough type: other Qualified Code(s): R05.8 - Other specified cough Plan: I OFFERED HIM DO TRY A LOW-DOSE INHALED STEROID PREP, OR USE ALBUTEROL INHALER P.R.N. FOR PERSISTENT COUGH. BUT HE DECIDED NOT USE ANY MEDICATION BECAUSE HIS SYMPTOMS ARE RELATIVELY MILD AND AFTER EXPLANATION GIVEN TO HIM HE IS WILLING TO WAIT IT OUT. I EXPLAINED TO HIM THAT HE SEEMS TO BE PRONE TO HAVE RELATIVELY HIGH LEVEL OF UPPER AIRWAYS SENSITIVITY, WHICH CAN GET ACCENTUATED AFTER ANY UPPER RESPIRATORY VIRAL INFECTION. (2) Obstructive sleep apnea: Comment: THIS GENTLEMAN DOES HAVE OBSTRUCTIVE SLEEP APNEA, MILD BUT HE IS SYMPTOMATIC. CAN NOT TOLERATE THE NASAL OR ORAL INTERFACE. HE IS BEING WORKED UP FOR POSSIBLE INSPIRE PROCEDURE. CURRENTLY BEING FOLLOWED BY SLEEP MEDICINE SERVICE OF [facility]. Code(s): G47.33 - Obstructive sleep apnea (adult) (pediatric) Category: Medical Plan: ABOVE Orders: Orders Complete Blood Count Auto Diff Today R05.8 - Other specified cough Coding Level of Care Code New Pt Level 3 (06248) Diagnoses Other cough R05.8 Cough type: other Obstructive sleep apnea G47.33
== END 2025-01-13 15:30 | disposition home or self-care (01) ==
LOC: HO.HPS 10:58
PROVIDERS: PCP Internal Medicine; Visit Provider Internal Medicine
DX: R05.8 Other specified cough (principal); G47.33 Obstructive sleep apnea (adult) (pediatric)
CPT/HCPCS: 99203

== ENCOUNTER 2025-02-22 08:31 | Outpatient (AMB) | payer OTHER, SELFPAY ==
[2025-02-22 08:32] VITALS: BP 138/82; PULSE 88; RESP 18; TEMP 36.3; O2SAT 98; BMI 25.4
--- NOTE | 2025-02-22 08:32 | MHC.PC.OV ---
Vital Signs 02/22/25 08:32 Height 5 ft 7 in Weight 162 lb 6 oz BMI 25.4 BP 138/82 Blood Pressure Location Lt brachial Position Sitting Respiration 18 Pulse 88 Pulse Source Pulse Oximeter Temp 97.3 F Temp Source Temporal Artery Scan Pulse Oximetry (%) 98 Oxygen Delivery Method Room Air Intake Visit Reasons: f/u cough Allergies dander and pollen Allergy (Mild, Uncoded 02/22/25 08:44) Dry Eye Medication List - Last Reconciled 02/22/25 by Sandra Handy PA-C apremilast 30 mg PO BID atorvastatin 20 mg PO DAILY clobetasol 0.05% 1 appl topical DAILY PRN cyclobenzaprine 10 mg PO Q8H PRN ibuprofen 800 mg PO Q8H PRN Tobacco use date assessed: 02/22/25 Dental Screening Dental Screen Date: 02/22/25 Did you have a dental visit in the last 12 months?: Yes Did you have a dental problem in the last 6 months where you did not have access to dental care?: No Was dental information given to patient?: Patient has dentist HPI f/u cough HPI Details 49 year old male with past medical history of hypercholesterolemia, elevated LFTs, psoriasis, impaired glucose tolerance, and LIZETT last seen 11/2024 coming in for follow up. In review of the notes, patient was seen by pulmonology 12/2024 negative PFT advised his chronic cough is likely allergic rhinitis and upper airway hypersensitivity syndrome. He does have mild symptomatic obstructive sleep apnea and is being worked up for possible inspire by [facility] sleep medicine. Presenting with a cough and sleep apnea. The cough has been evaluated by a enlisted advisor and is likely due to allergies or hypersensitivity, with management through [id number] medications. The patient is undergoing evaluation for sleep apnea, considering the Inspire implant, and has a history of intolerance to CPAP therapy. He has a history of back pain, managed with cyclobenzaprine as needed, and works in a physically demanding job, contributing to weight loss. [facility] Medical History Obstructive sleep apnea Lumbar degenerative disc disease Vitamin D deficiency Insomnia Peroneal neuropathy Peyronie's disease Psoriasis Overweight (BMI 25.0-29.9) Hyperbilirubinemia Paresthesia of both feet Elevated LFTs Pure hypercholesterolemia Surgical History History of hand surgery Family History Mother Hypertension Father Heart disease Hyperlipidemia Social History Housing: House Alcohol intake: current Alcohol intake frequency: a few times a week Patient Tobacco Use Status: Former Tobacco user e-Cigarette/Vaping Use: Never Used Second Hand Smoke Exposure: Yes service: No Current occupational status: employed 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 1. Little interest or pleasure in doing things: not at all 2. Feeling down, depressed, or hopeless: not at all 3. Trouble falling or staying asleep, or sleeping too much: not at all 4. Feeling tired or having little energy: not at all 5. Poor appetite or overeating: not at all 6. Feeling bad about yourself - or that you are a failure or have let yourself or your family down: not at all 7. Trouble concentrating on things, such as reading the newspaper or watching television: not at all 8. Moving or speaking so slowly that other people could have noticed. Or the opposite - being so fidgety or restless that you have been moving around a lot more than usual: not at all 9. Thoughts that you would be better off or of hurting yourself in some way: not at all Total score: 0 Source: Developed by Drs. Jose Johnston, Mini Pierce, Immanuel Ponce and colleagues, with an educational radha from [employer]. Thrive Questionnaire Date Thrive assessed: 11/17/24 I am a: Patient What is your living situation today?: I have a steady place to live Within the past 12 months, did the food you bought not last and you didn't have the money to get more?: I choose not to answer this question Within the past 12 months, did you worry whether your food would run out before you got money to buy more?: I choose not to answer this question Do you have trouble paying for medicines?: I choose not to answer this question Do you have trouble getting transportation to medical appointments?: I choose not to answer this question Do you have trouble paying your heating and electricity bill?: I choose not to answer this question Do you have trouble taking care of your child, family member or friend?: I choose not to answer this question Do you have trouble with day-to-day activities such as bathing, preparing meals, shopping, managing finances, etc.?: I choose not to answer this question Are you currently unemployed and looking for a job?: I choose not to answer this question Are you interested in more education?: I choose not to answer this question Please select the resources that you would like help with: None Currently or been in a relationship where the following occur: I choose not to answer THRIVE Score: 0 AUDIT C Alcohol Use Questionnaire (AUDIT-C) 1. How often do you have a drink containing alcohol?: 2-3 times a week 2. How many drinks containing alcohol do you have on a typical day when you are drinking?: 1 or 2 3. How often do you have six or more drinks on one occasion?: Less than monthly Total Score: 4 CLAIRE-7 AMB Questionnaire CLAIRE-7 Date CLAIRE - 7 assessed: 11/17/24 Feeling nervous, anxious, or on edge: 0 = Not at all Not being able to stop or control worryin = Not at all Worrying too much about different things: 0 = Not at all Trouble relaxin = Not at all Being so restless that it is hard to sit still: 0 = Not at all Becoming easily annoyed or irritable: 0 = Not at all Feeling afraid as if something awful might happen: 0 = Not at all Total CLAIRE-7 score (0-4 normal; 5-9 mild; 10-14 moderate; 15-21 severe): 0 Source: Developed by Drs. Jose Johnston, Mini Pierce, Immanuel Ponce and colleagues, with an educational radha from [employer]. Review of Systems Const Denies body aches, Denies chills, Denies fever(s), Denies headache(s) and Denies poor appetite Eyes Reports no additional complaints ENT Denies dizziness and Denies headache(s) Card Denies chest pain, Denies lightheadedness and Denies dyspnea Resp Reports cough (mild intermittent ), Denies hemoptysis, Denies excessive phlegm production and Denies dyspnea GI Reports no additional complaints Reports no additional complaints Musc Reports no additional complaints and Denies abnormal gait Skin/Breast Reports system reviewed and no additional complaints, except as documented Neuro Denies abnormal gait, Denies dizziness and Denies headache(s) Psych Reports no additional complaints Physical exam (Primary Care) Vital Signs: Last Vital Signs Temp 97.3 F 02/22/25 08:32 Pulse 88 02/22/25 08:32 Resp 18 02/22/25 08:32 BP 138/82 02/22/25 08:32 Pulse Ox 98 02/22/25 08:32 Oxygen Delivery Method Room Air 02/22/25 08:32 BMI result Body Mass Index 25.4 Tobacco/Smoking Status: Tobacco use Status Tobacco use date assessed 02/22/25 02/22/25 08:36 Patient Tobacco Use Status Former Tobacco user 02/22/25 08:36 e-Cigarette/Vaping Use Never Used 02/22/25 08:36 PHQ-9: PHQ-9 Score PHQ-9: Total score 0 02/22/25 08:36 Thrive Assessment: Date of Thrive Assessment Date Thrive assessed 11/17/24 02/22/25 08:36 Currently or been in a relationship where the following occur: I choose not to answer Const General: cooperative, healthy appearing, comfortable and no acute distress Orientation/consciousness: patient oriented x3 HENMT Head: Yes normocephalic Ears: hearing grossly normal bilaterally General nose exam: Normal external nose present Eyes General: appearance normal, both eyes and all related structures Conjunctivae: conjunctivae normal Neck Neck: Yes full ROM and Yes no lymphadenopathy Resp Effort & Inspection: normal respiratory effort Auscultation: clear to auscultation bilaterally, no crackles, no rales, no rhonchi and no wheezes Cardio Rate: regular rate Rhythm: regular rhythm Skin General skin exam: no rashes or lesions noted Neuro General: patient oriented x3 Gait exam (Neuro): Normal gait present Extrem General: Yes normal to inspection, Yes full ROM and No edema Psych Affect: normal affect Attitude: cooperative Insight: Good insight present (Psych) Judgement: Good judgement present (Psych) Coding Level of Care Code Est Pt Level 3 (79857) Diagnoses Chronic coughing R05.3 Obstructive sleep apnea G47.33 Impaired fasting glucose R73.01 Overweight (BMI 25.0-29.9) E66.3 Pure hypercholesterolemia E78.00 Assessment & Plan Assessment & Plan (1) Chronic coughing: Code(s): R05.3 - Chronic cough Category: Medical Plan: Recently seen by Pulmonology, thought to be reactive airway or chronic allergic rhinitis. He was offered inhalers which he declined at that time and continues to decline today. His PFT was normal and imaging was reviewed with his enlisted advisor. Follow up as needed for this concern. (2) Obstructive sleep apnea: Comment: THIS GENTLEMAN DOES HAVE OBSTRUCTIVE SLEEP APNEA, MILD BUT HE IS SYMPTOMATIC. CAN NOT TOLERATE THE NASAL OR ORAL INTERFACE. HE IS BEING WORKED UP FOR POSSIBLE INSPIRE PROCEDURE. CURRENTLY BEING FOLLOWED BY SLEEP MEDICINE SERVICE OF [facility]. Code(s): G47.33 - Obstructive sleep apnea (adult) (pediatric) Category: Medical Plan: Patient is currently working with Neurology to establish on inspire while he awaits further evaluation from ENT. He has appt in March with ENT and sleep medicine in April. (3) Impaired fasting glucose: Code(s): R73.01 - Impaired fasting glucose Category: Medical Plan: Decrease the amount of carbohydrates such as pasta, bread, rice, and potatoes and limit the amount of sweets. Although fruits are generally healthy they should be eaten in moderation as they are still high in sugar. (4) Overweight (BMI 25.0-29.9): Code(s): E66.3 - Overweight Category: Medical Plan: Healthy diet and regular exercise is encouraged. Noted 5 lb weight loss since last visit. (5) Pure hypercholesterolemia: Code(s): E78.00 - Pure hypercholesterolemia, unspecified Category: Medical Plan: Avoid foods that are high in cholesterol such as red meat, fried foods, eggs and baked goods. Triglyceride goal of less than 150 and LDL goal of less than 100. Continue on Atorvastatin 20 mg. Last bloodwork within goal for this patient. Plan The patient will continue managing his cough with [id number] allergy medications as prescribed by the enlisted advisor, given the likely allergic or hypersensitivity etiology. For sleep apnea, the patient is considering the Inspire implant and will follow up with an ENT specialist before his next appointment with the sleep medicine provider in April. The patient will continue using cyclobenzaprine as needed for back pain management and will maintain his current level of physical activity, which has contributed to weight loss. Refills for atorvastatin and other medications have been provided, and the patient will schedule his next physical examination in July. This note was constructed using voice recognition software. While every effort has been made to ensure accuracy and restaurant attendant, still areas may have been included sometimes these areas may affect the content or meeting of the given symptoms. Total time spent caring for the patient today was 20 minutes. This includes time spent before the visit reviewing the chart, time spent during the visit, and time spent after the visit and documentation. Patient was informed and verbally consented to the use of an ambient scribe for clinic note documentation during this visit. Medications: Refilled cyclobenzaprine 10 mg PO Q8H PRN 60 tabs 2RF muscle spasms clobetasol 0.05% 1 appl topical DAILY PRN 50 mL 3RF scalp psoriasis atorvastatin 20 mg PO DAILY 90 tabs 1RF E78.00 - Pure hypercholesterolemia, unspecified Discontinued ibuprofen Discontinued Reason: Patient no longer taking 800 mg PO Q8H PRN 10 tabs 0RF fever or pain
== END 2025-02-22 09:00 | disposition home or self-care (01) ==
LOC: HO.HMCH 08:31
PROVIDERS: PCP Internal Medicine
DX: R05.3 Chronic cough (principal); G47.33 Obstructive sleep apnea (adult) (pediatric); R73.01 Impaired fasting glucose; E66.3 Overweight; E78.00 Pure hypercholesterolemia, unspecified

== ENCOUNTER → 2025-02-22 08:31 | Outpatient (BNVA) | payer OTHER, SELFPAY | PROVIDERS: PCP Internal Medicine | DX: R05.3 Chronic cough (principal); G47.33 Obstructive sleep apnea (adult) (pediatric); R73.01 Impaired fasting glucose; E66.3 Overweight; Z68.25 Body mass index [BMI] 25.0-25.9, adult; E78.00 Pure hypercholesterolemia, unspecified; Z13.30 Encounter for screening examination for mental health and behavioral disorders, unspecified | CPT/HCPCS: 99212 ==

== ENCOUNTER 2025-05-02 07:55 | Outpatient (AMB) | payer OTHER, SELFPAY ==
[2025-05-02 07:59] VITALS: BP 144/88; PULSE 77; O2SAT 97; BMI 27.3
--- NOTE | 2025-05-02 07:59 | MHC.OFFVIS ---
Vital Signs 05/02/25 07:59 Height 5 ft 7 in Weight 174 lb 8 oz BMI 27.3 BP 144/88 H Blood Pressure Location Rt brachial Position Sitting Pulse 77 Pulse Source Pulse Oximeter Pulse Oximetry (%) 97 Oxygen Delivery Method Room Air Intake Visit Reasons: 6mon follow-up Intake Note: Patient presents follow up Sleep. Patient declined CPAP Accompanied by: Self / Same As Patient Allergies dander and pollen Allergy (Mild, Uncoded 02/22/25 08:44) Dry Eye HPI Comments Details: 49 year old male comes to us for Sleep Consultation per PCP Dr. Wells. HST was conducted in Sep 2024 and AHI is 12, supine AHI was 43, and Oxygen Mitchell to 83%. ENT Eval completed with Dr. Alba, and he is not a good candidate for the Inspire therapy. He has multiple night time arousals, with 3-4 hours of sleep at night, he looks at the clock and can not fall asleep. He goes to the bathroom then is awake for the rest of the night. He was also evaluated for hypoxemia by pulmonology and has environmentally induced asthma. He declines ambien, melatonin or sleep aids. His partner c/o loud snoring, she has to wake him up several times a night, as he stops breathing, and chokes for air. He is chronically fatigued. Denies headaches, gait issues, vertigo, balance difficulties. He declines a sleep dentistry referral today. We discussed hypoxemia and the risk factors associated with hypoxemia related to cognition and cardiovascular co-morbidities. Jessica RLS symptoms. He did have a NCS/ EMG and symptoms of foot drop for years. His mood, diet and memory are good, he is active during the day, he works in [employer]. We discussed the possibility of CPAP once again at APAP [id number] and try various masks to see if he can tolerate the newer softer nasal masks and he is agreeable. We reviewed labs today, D is low, and will taper alcohol intake. [facility], [facility] Medical History Obstructive sleep apnea Lumbar degenerative disc disease Vitamin D deficiency Insomnia Peroneal neuropathy Peyronie's disease Psoriasis Overweight (BMI 25.0-29.9) Hyperbilirubinemia Paresthesia of both feet Elevated LFTs Pure hypercholesterolemia Surgical History History of hand surgery Family History Mother Hypertension Father Heart disease Hyperlipidemia Social History Housing: House Alcohol intake: current Alcohol intake frequency: a few times a week Patient Tobacco Use Status: Former Tobacco user e-Cigarette/Vaping Use: Never Used Second Hand Smoke Exposure: Yes service: No Current occupational status: employed 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 Cognitive needs: No Hearing needs: No Vision needs: No Physical Exam Vital Signs: Last Vital Signs Pulse 77 05/02/25 07:59 BP 144/88 H 05/02/25 07:59 Pulse Ox 97 05/02/25 07:59 Oxygen Delivery Method Room Air 05/02/25 07:59 BMI result Body Mass Index 27.3 Const General: healthy appearing, comfortable, no acute distress, alert and awake Nutritional Appearance: average body habitus Orientation/consciousness: patient oriented x3 HEENT Head: Yes normal to inspection General nose exam: No nasal polyps present, mucous membranes and turbinates abnormal (HE HAS BILATERAL ENLARGED NASAL TURBINATES) and No nasal discharge present Face and sinus: Yes sinuses nontender Mouth: oropharynx normal Throat: Yes posterior oropharynx normal Eyes General: appearance normal, both eyes and all related structures Neck Neck: Yes normal visual inspection, Yes no lymphadenopathy, Yes trachea midline and Yes no JVD Thyroid: Thyroid normal Chest Chest palpation & inspection: normal inspection of the chest, normal palpation of entire chest wall and no tenderness Resp Effort & Inspection: normal respiratory effort Auscultation: clear to auscultation bilaterally, no crackles and no wheezes Cardio Palpation: normal PMI Rate: regular rate Rhythm: regular rhythm Heart sounds: no gallops and no murmurs Peripheral pulses: Peripheral pulses 2+ throughout GI Palpation (GI): Soft to palpation, nontender, No hepatosplenomegaly present and no masses Auscultation: normal bowel sounds Back/Spine/Pelvis Thoracic/Lumbar Spine: thoracic and lumbar spine normal to inspection Skin General skin exam: no rashes or lesions noted Neuro General: patient oriented x3 and no focal motor deficits Cranial nerves: Yes CN's II-XII intact bilaterally Gait exam (Neuro): Normal gait present Motor exam (neuro): 5/5 motor strength present throughout and Normal motor muscle tone present throughout Extrem General: Yes normal to inspection, Yes no clubbing, cyanosis or edema and Yes no calf tenderness Psych Appearance: grossly normal Speech and movement: Normal speech and movement present Affect: normal affect Attitude: cooperative Thought content: Normal thought content present Insight: Good insight present (Psych) Judgement: Good judgement present (Psych) Results Reviewed Results Reviewed: HST is consistent with AHI of 12 and suppine AHI is 43 with O2 desaturation to 83%. ENT eval completed not a good candidate for Inspire Will retry Apap [id number], due to nocturnal hypoxemia. Assessment & Plan Assessment & Plan (1) Loud snoring: Code(s): R06.83 - Snoring Category: Medical (2) Insomnia: Code(s): G47.00 - Insomnia, unspecified Category: Medical Qualifiers: Insomnia type: unspecified Qualified Code(s): G47.00 - Insomnia, unspecified (3) Obstructive sleep apnea: Comment: THIS GENTLEMAN DOES HAVE OBSTRUCTIVE SLEEP APNEA, MILD BUT HE IS SYMPTOMATIC. CAN NOT TOLERATE THE NASAL OR ORAL INTERFACE. HE IS BEING WORKED UP FOR POSSIBLE INSPIRE PROCEDURE. CURRENTLY BEING FOLLOWED BY [facility]. Code(s): G47.33 - Obstructive sleep apnea (adult) (pediatric) Category: Medical (4) Cough: Comment: HE PAST SMOKER BUT QUIT MORE THAN 12 YEARS AGO. PULMONARY FUNCTION TEST IS NORMAL. HISTORY OF COUGH FOR ABOUT 6 MONTHS AFTER A NONSPECIFIC UPPER RESPIRATORY INFECTION. MOST LIKELY CAUSE IS CHRONIC ALLERGIC RHINITIS/ AND UPPER AIRWAYS HYPERSENSITIVITY SYNDROME. SYMPTOM MEDICALLY IT IS JUST THE COUGH BUT HE IS NOT BOTHERED BY THIS MUCH. Code(s): R05.9 - Cough, unspecified Category: Medical Qualifiers: Cough type: other Qualified Code(s): R05.8 - Other specified cough (5) Chronic coughing: Code(s): R05.3 - Chronic cough Category: Medical (6) Vitamin D deficiency: Code(s): E55.9 - Vitamin D deficiency, unspecified Category: Medical Plan mild janette, CPAP RX sent AHI was 12 and 43 in supine, Oxygen Nadirs to 83%. he agrees to try APAP [id number] and f/u for compliance. Excessive daytime fatigue, Chronic cough, Nocturnal hypoxemia PFT completed. ENT evaluation completed for DISE procedure and he is not a good candidate for Inspire therapy. Labs reviewed with pt today, Vit D is low at 33. Continue Vitamin D daily. Start Magnesium 400mg PO daily at bedtime for sleep, Start melatonin 3-5mg po daily at bedtime. F/U in 3 months for compliance. Patient Instructions: Sleep Hygiene provided: set a scheduled bedtime and wake time to help regulate the circadian rhythm and balance the release of pituitary hormones. Sleep in a dark room, temperatures below 68 degrees, and no devices n bed. Limit caffeinated products 6 hours prior to bed, and limit fluids 2-4 hours prior to bed. Gentle night yoga, diffusing essential oils, and playing soft music can be relaxing. Coding Level of Care Code Est Pt Level 4 (35731) Diagnoses Loud snoring R06.83 Insomnia, unspecified type G47.00 Insomnia type: unspecified Obstructive sleep apnea G47.33 Other cough R05.8 Cough type: other Chronic coughing R05.3 Vitamin D deficiency E55.9
== END 2025-05-02 08:30 | disposition home or self-care (01) ==
LOC: HO.HSMS 07:56
PROVIDERS: PCP Internal Medicine; Visit Provider Physician Assistant Medical
DX: R06.83 Snoring (principal); G47.00 Insomnia, unspecified; G47.33 Obstructive sleep apnea (adult) (pediatric); R05.8 Other specified cough; R05.3 Chronic cough; E55.9 Vitamin D deficiency, unspecified
CPT/HCPCS: 99214

== ENCOUNTER → 2025-05-02 07:55 | Outpatient (BNVA) | payer OTHER, SELFPAY | PROVIDERS: PCP Internal Medicine; Visit Provider Physician Assistant Medical | DX: G47.33 Obstructive sleep apnea (adult) (pediatric) (principal); R06.83 Snoring; R05.3 Chronic cough; E55.9 Vitamin D deficiency, unspecified; G47.00 Insomnia, unspecified | CPT/HCPCS: 99212 ==

== ENCOUNTER 2025-08-09 09:24 | Outpatient (REF) | payer OTHER, SELFPAY ==
[2025-08-09 09:38] LABS: MANUAL DIFF FLAG NO
[2025-08-09 09:49] LABS: Hematocrit 45.8 % (42.0-52.0); Hemoglobin 15.3 g/dl (14.0-18.0); Imm Gran Abs Auto 0.01 X10*3/uL (0.00-0.03); Imm Gran Pct Auto 0.2 % (0.0-0.4); Lymphocytes Absolute Auto 2.2 X10*3/uL (1.2-4.9); Mean Corpuscular HGB Conc 33.4 g/dl (31.0-36.0); Mean Corpuscular Hemoglobin 32.1 pg (27.0-33.0); Mean Corpuscular Volume 96.0 fL (80.0-98.0); NRBC Abs Auto 0.000 X10*3/uL (0.0-0.012); NRBC Pct Auto 0.0 /100WBC (0.0-0.2); Platelet Count 213 X10*3/uL (160-400); Red Blood Count 4.77 X10*6/uL (4.60-5.80); White Blood Count 5.2 X10*3/uL (4.8-10.8)
--- OUTSIDE RECORDS SUMMARY | 2025-08-09 10:07 | XMS_ITS | Clinical Summary ---
Author Organization Kayla Chiang [facility] Address [address] [place] [address] Care Team Providers Care Feather Trimmer Name Role Phone Preston Wells Unavailable [phone] Preston Wells Primary Care Provider [phone] Allergies No known active allergies Medications atorvaSTATin (LIPITOR) 20 MG tablet TAKE 1 TABLET BY MOUTH EVERY DAY 3 09/04/2017 Active apremilast (OTEZLA) 30 mg Tab Take 1 tablet (30 mg total) by mouth every morning & every evening. Active sildenafil, antihypertensiv e, (REVATIO) 20 mg tablet Take 1 tablet (20 mg total) by mouth as needed (1-5 pills as needed 1 hour before sexual activity). 90 tablet 11 11/10/2017 Active Active Problems Problem Noted Date Diagnosed Date Erectile dysfunction of organic origin 4 Peyronie's disease 10/20/2017 Social History Tobacco Use Types Packs/Day Years Used Date Smoking Tobacco: Former Cigarettes 10 0 10/20/1996 - 10/20/2006 Smokeless Tobacco: Former Alcohol Use Standard Drinks/Week Comments Yes 6 (1 standard drink = 0.6 oz pur e alcohol) Sex and Gender Information Value Date Recorded Sex Assigned at Male 06/14/2024 11:18 AM EDT Legal Sex Male 9:37 AM EST Gender Identity Male 06/14/2024 11:18 AM EDT Sexual Orientation Not on file Last Filed Vital Signs Vital Sign Reading Time Taken Comments Blood Pressure 129/89 10/21/2017 3:30 PM EST Pulse 88 10/21/2017 3:30 PM EST Temperature 36.8 C (98.2 F) 10/21/2017 2:46 PM EST Respiratory Rate 14 10/21/2017 3:30 PM EST Oxygen Saturation 100% 10/21/2017 3:30 PM EST Inhaled Oxygen Concentration - - Weight 75.8 kg (167 lb) 10/20/2017 1:02 PM EST Height 170.2 cm (5' 7 ) 10/20/2017 1:02 PM EST Body Mass Index 26.16 10/20/2017 1:02 PM EST Plan of Treatment Health Maintenance Due Date Last Done Comments Blood Pressure 1975 Lipid Panel 1975 PSA 1975 Prostate Cancer Screening 1975 SDM 1975 Depression Screening 1987 Hepatitis C Screening 1993 CT Colonography 2020 Colonoscopy 2020 Colorectal Cancer Screening 2020 FIT 2020 FOBT 2020 Multitarget Stool DNA (Cologuard) 2020 Sigmoidoscopy 2020 COVID-19 Vaccine (1 - 2024-2 6 season) 2025 Influenza Vaccine (#1) 2025 Pneumococcal Vaccine: 50+ Ye ars (1 of 1 - PCV) 2025 Zoster Vaccine (1 of 2) 2025 DTaP,Tdap,and Td Vaccines (2 - Td or Tdap) 06/20/2033 06/20/2023 Meningococcal B Vaccines Aged Out No longer eligible based on patient's age to complete this topic Meningococcal Vaccines Aged Out No lo nger eligible based on patient's age to complete this topic [place] [facility] [place] [facility] Care Teams Feather Trimmer Relationship Specialty Start Date End Date Preston Wells [address] [address] PCP - Insurance Assigned PCP 06/14/24 Preston Wells [address] [address] PCP - General 06/14/24
--- OUTSIDE RECORDS SUMMARY | 2025-08-09 10:07 | XMS_ITS | Data Portability ---
Author Organization [place] - [facility], Allergy Address [address] [address] Care Team Providers Care Worm Sorter Name Role Phone MIGUEL ANGEL AMAN Primary Care Provider Assessment Encounter Date Assessment Date Assessment LastModified by Organization Details LastModified Time 04/14/2025 04/14/2025 - Mild obstructi ve sleep apnea, AHI 11.6, September 2024. The patient has mild obstructive sleep apnea with an AHI of 11.6, which does not meet the criteria for Inspire therapy. CPAP therapy was previously trialed but was intolerable due to claustrophobia. An oral appliance was also attempted years ago but discontinued due to discomfort. The patient's tonsils are small, and nasal examination reveals no significant abnormalities. I recommend the patient continue working with the sleep center to explore options for managing insomnia, including potential medications to help initiate and sustain sleep. I will send a detailed note to Dr. Kaye to inform them of the findings and recommendations from today's visit. The patient may benefit from continued use of Flonase for nasal symptoms and wearing a mask for protection while working in environments with poor air quality. No further surgical interventions are indicated at this time given the mild severity of his condition. Procedure Documentation: - Fiber optic nasal endoscopy performed during the visit. [email or web address] Not available 04/14/2025 14:29:54 Plan of Treatment Reminders Order Date Submit Date Provider Last Modified By Organization Details Last Modified Time Details Appointments None record ed. Lab None record ed. Referral None record ed. Procedures None record ed. Surgeries None record ed. Imaging None record ed. Medication Orders None record ed. Patient TargetsNo targets recorded. Patient Instructions Encounter Date Encounter Id Patient Instructions Last Modified By Organization Details Last Modified Time 04/14/2025 [id number] Continue working with the sleep center to explore options for managing insomnia, including potential medications. Use Flonase for nasal symptoms as needed. Wear a mask for protection while working in environments with poor air quality. [email or web address] Not available 04/14/2025 14:29:51 Please note: Parts of this encounter note have been generated by AI based on audio conversation. Patient consent was required prior to utilizing this technology. Content review was required prior to finalizing the note. [email or web address] Not available 04/14/2025 14:29:51 Reason for Referral None Reported. Results Created Date Observation Date Name Description Value Unit Range Abnormal Flag Note LastModifiedBy Organization Detail LastModifiedTime 04/15/2009/27/2024 sleep study , diagn ostic (PROC ) No observ ation record ed. [email or web address] Not Available 03/19 09:06:18 Result Notes None recorded. Problems Name Problem SNOMED Code Status Onset Date Resolution Date Notes Provider Name and Address Organization Details Recorded Time Obstructiv e sleep apnea syndrome 00538134 Active 2015 Obstructiv e sleep apnea (adult) (pediatric ); Note: Date Diagnosed: 12/28/2015 3:19 PM (G47.33) Not Available [facility] 03:33:18 Primary insomnia 9059466 Active 2024 SUSI RAMOS MD [address] [place] [address], [phone] , [facility] 14:30:10 Problem Notes None recorded. Procedures Surgical History Date Name Laterality Status Provider Name and Address Organization Details Recorded Time 04/14/2025 Nasopharyn goscopy_DP completed SUSI RAMOS MD [address] [place] [address], [phone], [facility] 04/14/2025 14:29:37 Imaging Results None recorded. Procedure Notes None recorded. Medical Equipment None Reported. Allergies No known drug allergies Medications Name Sig Start Date Stop Date Status Note LastModified by Organization Details LastModified Time cyclobenzap rine 10 mg tablet TAKE 1 TABLET BY MOUTH EVERY 8 HOURS NEEDED FOR MUSCLE SPASM active Not Available Not Available No t Available acetaminoph en 325 mg tablet TAKE 2 TABLETS BY MOUTH EVERY 4 HOURS NEEDED FOR MILD PAIN (LIMIT 4000MG OF TYLENOL/A CETAMINOP HEN PER DAY) 04/14 completed Not Available Not Available Not Available atorvastati n 20 mg tablet TAKE 1 TABLET BY MOUTH EVERY DAY active Not Available Not Available No t Available azithromyci n 250 mg tablet TAKE 2 TABLETS BY MOUTH TODAY, THEN TAKE 1 TABLET DAILY FOR 4 DAYS DIRECTED 04/14 completed Not Available Not Available Not Available PreviDent 1.1 % gel USE PEA SIZE AMOUNT AND BRUSH DAILY, RINSE, DO NOT SWALLOW active Not Available Not Available No t Available clobetasol 0.05 % scalp solution 1 APPL TOPICALLY DAILY NEEDED FOR SCALP PSORIASIS active Not Available Not Available No t Available oxycodone 5 mg tablet TAKE 1 TABLET BY MOUTH EVERY 4 HOURS NEEDED FOR MODERATE PAIN 04/14 completed Not Available Not Available Not Available chlorhexidi ne gluconate 0.12 % mouthwash PLEASE SEE ATTACHED FOR DETAILED DIRECTION S active Not Available Not Available No t Available Otezla 30 mg tablet 04/14 completed Not Available Not Available Not Available Vitals Date Recorded Body height Body mass index (BMI) Body weight Provider Name and Address Organization Details Last Updated DateTime 04/14/2025 170.18 cm 25.1 kg/m2 20017.78 g DIONISIO FLORES [place] - [facility] 04/14/2025 14:10:36 Social History None recorded. Functional Status None recorded. Mental Status None recorded. Family History Nothing Reported. Medical History No medical history recorded. Past Encounters Encounter ID Performer Location Encounter Start Date Encounter Closed Date Diagnosis/Indication Diagnosis SNOMED-CT Code Diagnosis ICD10 Code Diagnosis IMO Codes Diagnosis Note [id number] SUSI RAMOS MD [facility] [address] [address] 04/14/2025 13:43:19 04/14/2025 14:29:55 Obstructive sleep apnea syndrome 19092783 G47.33 Primary insomnia 4802215 F51.01 26059 Health Concerns Section Related Observation LastModified by Organization Detai ls LastModified Time None Recorded Concern Status LastModified by Organization Details LastModified Time None Recorded Advance Directives Directive None Recorded Payers Insurance Date Sequence Insurance Name Policy Number Policy Schwartz Covered Member ID Schwartz Member ID Guarantor Name 04/14/2025 1 [facility] ([facility]) [id number] Chip Fierro [id number] Chip Fierro 04/14/2025 1 [facility] Chip Fierro [id number] Chip Fierro Notes Date Note Type Note Provider Name and Address Organization Details Recorded Time 04/14/2025 text/html LIZETT, Insomnia 09/27/[address] Mikki Monroe BMI 27.9 PAPA 11.6 Central and mixed none recorded CPAP trial - intolerant, claustrophobia Chip Fierro is a 49-year-old male who presents for evaluation of sleep apnea. He reports a history of frequent waking during the night and difficulty falling asleep, which has persisted throughout his life. He underwent a sleep study in September 2024, which demonstrated mild obstructive sleep apnea with an apnea-hypopnea index (AHI) of 11.6. He has previously trialed CPAP therapy but was unable to tolerate it due to claustrophobia. He also attempted an oral appliance years ago, which was fabricated by an ear, nose, and throat specialist, but discontinued its use due to discomfort and unnatural sensation. He denies any history of nasal or throat surgery. 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 He completed a course of allergy injections years ago. He denies any significant changes in weight and reports feeling tired during the day, which prompted his most recent sleep study. SUSI RAMOS MD [address] [place] [address], [phone], [facility] - [facility] 04/14/2025 14:31:27
[2025-08-09 10:31] LABS: Alanine Aminotransferase 37 U/L (0-40); Albumin Level 4.5 g/dL (3.5-5.0); Alkaline Phosphatase 61 U/L (39-117); Anion Gap 11 (12-20); Aspartate Amino Transferase 30 U/L (5-37); Blood Urea Nitrogen 10 mg/dL (9-16); Calcium 9.2 mg/dL (8.4-10.2); Carbon Dioxide 26 mmol/L (22-29); Chloride 108 mmol/L (96-108); Cholesterol 187 mg/dL (<200); Estimated Glomerular Filt Rate > 60; HDL Cholesterol 83 mg/dL (>40); Potassium 4.0 mmol/L (3.3-5.1); Sodium 141 mmol/L (135-145); Total Protein 6.9 g/dL (6.5-8.0); Triglycerides 82 mg/dL (<150)
[2025-08-09 10:53] LABS: Folate 11.3 ng/mL (> or = 4.0); Vitamin B12 380 pg/mL (200-900)
== END 2025-08-09 09:25 | disposition home or self-care (01) ==
LOC: HO.LAB 09:24
DX: Z00.00 Encounter for general adult medical examination without abnormal findings (principal); E78.00 Pure hypercholesterolemia, unspecified; Z13.0 Encounter for screening for diseases of the blood and blood-forming organs and certain disorders involving the immune mechanism; Z12.5 Encounter for screening for malignant neoplasm of prostate; R73.01 Impaired fasting glucose; Z13.21 Encounter for screening for nutritional disorder; Z13.29 Encounter for screening for other suspected endocrine disorder
CPT/HCPCS: 36415; 80053; 80061; 82306; 82607; 82746; 83036; 84153; 84443; 85025